=== PATIENT | male | born 1935 | race Caucasian/White ===

== ENCOUNTER 2017-01-29 21:35 | Inpatient (IN) | payer OTHER ==
[~2017-01-29] VITALS: Ht 167.6 cm; Wt 62.0 kg
[2017-01-29 23:44] VITALS: BMI 22.1
[2017-01-30] VITALS (10 sets, daily range): BP systolic 106–176; BP diastolic 56–76; PULSE 63–87; RESP 16–20; Ht 167.6 cm; Wt 62.0 kg
[2017-01-30] MEDS ORDERED: DIAZEPAM 5 MG TAB PO ONE (00:49)
[2017-01-30] MEDS ORDERED: hydrALAzine 20 MG INJ ONE (01:14)
[2017-01-30] MEDS ORDERED: DIAZEPAM 5 MG TAB ONE (01:15)
[2017-01-30] MEDS ORDERED: clonAZEPAM 0.5 MG TAB ONE (05:44)
[2017-01-30 07:23] LABS: ALBUMIN 3.9 g/dl (3.3-4.9); ALBUMIN/GLOBULIN RATIO 1.18; BILIRUBIN,INDIRECT 0.7 mg/dl (0-1.1); BILIRUBIN,TOTAL 0.7 mg/dl (0.2-1.3); CALCIUM 8.6 mg/dl (8.4-10.2); CREATININE 0.72 mg/dl (0.61-1.24); MAGNESIUM 1.7 mg/dl (1.7-2.5); PHOSPHORUS 2.4 mg/dl (2.5-4.9); POTASSIUM 3.4 mmol/L (3.5-5.1); TOTAL PROTEIN 7.2 g/dl (6.1-8.1)
--- NOTE | 2017-01-30 07:30 | HP ---
DATE OF ADMISSION: 01/29/2017 CHIEF COMPLAINT: Tremors and insomnia. HISTORY OF PRESENT ILLNESS: Mr. Carter is an 81-year-old male, who was brought in by his and his daughter because he has been having insomnia for about the last 5 days. The patient has been on clonazepam for 5 years for insomnia but this stopped working for the patient and he was changed to Ambien. However, since roughly since about the time of switch, Marycarmen does not seem to work at all and the patient has had any sleep for the last 3 days. He has developed lethargy and tremor and they called his primary care doctor today to complain of a severe tremor, who recommended go to the ER. In the emergency room, was found to have a sodium of 120, and decision was made to admit the patient. The patient has also been on losartan and hydrochlorothiazide for years. PAST MEDICAL HISTORY: 1. Hypertension. 2. Insomnia. SURGICAL HISTORY: None. ALLERGIES: NO KNOWN DRUG ALLERGIES. SOCIAL HISTORY: Denies tobacco, alcohol, or illicit drug use. FAMILY HISTORY: Noncontributory. MEDICATIONS: Reviewed and reconciled. PHYSICAL EXAMINATION: VITAL SIGNS: Vital signs are reviewed and stable. However, at this time. The computer system is down, so readings are not available. GENERAL: Patient was again, at about 1 a.m. in the morning, alert, not sleeping. Pleasant mood. HEENT: Head normocephalic. Pupils equal and reactive. Mucous membranes moist. Posterior pharynx free of exudate. NECK: Supple. CHEST: Clear. CARDIOVASCULAR: S1, S2. No murmurs. ABDOMEN: Soft, nontender, nondistended. Normoactive bowel sounds. EXTREMITIES: No lower extremity edema. SKIN: No rash or jaundice. LAB VALUES: Periportal lab values that were done at the referring ER were unremarkable except for a sodium of 123. EKG and chest x-ray were also unremarkable. ASSESSMENT: An 81-year-old male brought in for tremors and insomnia, likely secondary to the followin. Benzodiazepine withdrawal. 2. Symptomatic hyponatremia. 3. Tremor secondary to the above. 4. Hypertension with good control. PLAN: 1. Start patient on a longer-acting benzodiazepine and gently wean off Klonopin instead of stopping abruptly. 2. Neurology consult possibly depending on team and see if this might help the patient if tremors do not improve. 3. Gentle IV fluid hydration to help with hyponatremia, also hold diuretics for now. Again, for neurological consultation if no improvement. 4. Provide supportive care and therapy. 5. Prophylaxis. Patient is to be on SCDs and further intervention will depend on his clinical course. Dictated By: Philip Zarate MD /diane/patrick /Document#: [id number]
[2017-01-30 07:56] LABS: ADD UMIC YES; UR ASCORBIC ACID NEGATIVE (NEGATIVE); UR BILIRUBIN (Dip) NEGATIVE (NEGATIVE); UR BLOOD (Dip) 1+ mg/dL (NEGATIVE); UR CLARITY CLEAR (CLEAR); UR COLOR STRAW (YELLOW); UR GLUCOSE (Dip) NEGATIVE (NEGATIVE); UR KETONES (Dip) NEGATIVE (NEGATIVE); UR LEUKOCYTE ESTERASE (Dip) NEGATIVE Leu/ul (NEGATIVE); UR NITRITE (Dip) NEGATIVE (NEGATIVE); UR RBC 7 /HPF (0-5); UR SPECIFIC GRAVITY (Dip) 1.008 (1.003-1.030); UR TOTAL PROTEIN (Dip) NEGATIVE (NEGATIVE); UR UROBILINOGEN (Dip) NEGATIVE (NEGATIVE)
[2017-01-30 08:38] LABS: THYROID STIMULATING HORMONE 0.377 MIU/L (0.465-4.680)
[2017-01-30] MEDS ORDERED: ONDANSETRON 4 MG INJ IV PRN (09:00)
[2017-01-30] MEDS ORDERED: VALSARTAN 160 MG TAB PO SCH (09:00)
[2017-01-30] MEDS ORDERED: hydrALAzine 20 MG INJ IV PRN (09:00)
[2017-01-30] MEDS ORDERED: clonAZEPAM 0.5 MG TAB PO PRN (09:00)
[2017-01-30 09:45] LABS: BASOPHILS % 0.4 % (0.0-2.0); EOSINOPHILS # 0.1 10^3/ul (0.0-0.5); EOSINOPHILS % 0.5 % (0.0-7.0); HEMATOCRIT 40.3 % (42.0-52.0); HEMOGLOBIN 15.1 g/dl (14.0-18.0); LYMPHOCYTES # 1.9 10^3/ul (0.8-2.9); LYMPHOCYTES % 18.8 % (15.0-51.0); MEAN CORPUSCULAR HEMOGLOBIN 34.2 pg (29.0-33.0); MEAN CORPUSCULAR HGB CONC 37.5 g/dl (32.0-37.0); MEAN CORPUSCULAR VOLUME 91.2 fl (82.0-101.0); MEAN PLATELET VOLUME 10.3 fl (7.4-10.4); MONOCYTES % 10.3 % (0.0-11.0); NEUTROPHILS % 69.7 % (39.0-77.0); POSITIVE DIFF @See below; RED BLOOD COUNT 4.42 10^6/ul (4.70-6.10); RED CELL DISTRIBUTION WIDTH 12.1 % (11.5-14.5); WHITE BLOOD COUNT 10.1 10^3/ul (4.8-10.8)
[2017-01-30 09:55] LABS: PLATELET COUNT 152 10^3/UL (140-415)
[2017-01-30] MEDS: ASPIRIN 81 MG TAB PO SCH (10:01)
[2017-01-30] MEDS: DOCUSATE SODIUM 100 MG CAP PO SCH ×2 (10:01→20:40)
[2017-01-30] MEDS: ENOXAPARIN 40 MG/0.4 ML SYG SC SCH (10:08)
[2017-01-30] MEDS ORDERED: POTASSIUM CHLORIDE (SR) 20 MEQ TAB PO STA (10:56)
--- NOTE | 2017-01-30 11:14 | PN ---
Date/Time of Note Date/Time of Note DATE: 01/30/17 TIME: 11:10 Assessment/Plan VTE Prophylaxis VTE Prophylaxis Intervention: LMWH Assessment/Plan Problems: (1) Bipolar affective disorder, current episode hypomanic Status: Chronic Comment: In discussion with the patient's family he has had cyclical events of insomnia at least 4 times in the last few years. He has been on clonazepam at 2 mg a day for at least 5 years. He had seen a psychiatrist in [facility] but was not formally given a diagnosis that they are aware of. They were told to give him sleeping medications when he could not sleep. He does have intermittent episodes of depression after the episodes of not being able to sleep. Is never been treated for this in the [facility]. I suspect this is a late diagnosis of the bipolar affective disorder. Rapidly discontinuing his clonazepam is a recipe for disaster. In addition he had been given a prescription for [place] Prandin which she had not started. I believe this is partially a correct maneuver but he needs to be on low-dose lithium at bedtime to help keep him from cycling up. Start him on the lithium and then tomorrow we can start him on the citalopram with lamotrigine to keep him from cycling down. The clonazepam can be weaned off. 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 Adjust his blood pressure medications (5) Essential hypertension Status: Chronic Comment: Check postvoid residual. If elevated then we can use alpha blockade also can do blood pressure Subjective 24 Hr Interval Summary Free Text/Dictation Patient sitting upright in bed. Pleasant and exuberant. Reports his tremor has stopped Constitutional: no complaints Respiratory: no complaints Exam/Review of Systems Vital Signs Vitals Vital Signs Date Time Temp Pulse Resp B/P Pulse Ox O2 Delivery O2 Flow Rate FiO2 01/30/17 08:02 98.2 71 16 106/56 94 01/30/17 04:00 Room Air Exam Pleasant Salvadoran gentleman in no obvious distress. Results Result Diagram: 01/30/17 0524 01/30/1724 Results 24 hrs Laboratory Tests Test 01/30/17 01:30 01/30/17 05:24 Urine Color STRAW Urine Clarity CLEAR Urine pH 8.0 Urine Specific [place] 1.008 Urine Ketones NEGATIVE Urine Nitrite NEGATIVE Urine Bilirubin NEGATIVE Urine Urobilinogen NEGATIVE Urine Leukocyte Esterase NEGATIVE Urine Microscopic RBC 7 H Urine Microscopic WBC 0 Urine Hemoglobin 1+ H Urine Glucose NEGATIVE Urine Total Protein NEGATIVE White Blood Count 10.1 Red Blood Count 4.42 L Hemoglobin 15.1 Hematocrit 40.3 L Mean Corpuscular Volume 91.2 Mean Corpuscular Hemoglobin 34.2 H Mean Corpuscular Hemoglobin Concent 37.5 H Red Cell Distribution Width 12.1 Platelet Count 152 Mean Platelet Volume 10.3 Neutrophils % 69.7 Lymphocytes % 18.8 Monocytes % 10.3 Eosinophils % 0.5 Basophils % 0.4 Nucleated Red Blood Cells % 0.0 Neutrophils # (Manual) 7.0 Lymphocytes # 1.9 Monocytes # 1.0 H Eosinophils # 0.1 Basophils # 0.0 Nucleated Red Blood Cells # 0.0 Sodium Level 126 L Potassium Level 3.4 L Chloride Level 88 L Carbon Dioxide Level 23 Anion Gap 18 H Blood Urea Nitrogen 9 Creatinine 0.72 Glucose Level 97 Calcium Level 8.6 Phosphorus Level 2.4 L Magnesium Level 1.7 Total Bilirubin 0.7 Direct Bilirubin 0.00 Indirect Bilirubin 0.7 Aspartate Amino Transf (AST/SGOT) 25 Alanine Aminotransferase (ALT/SGPT) 30 Alkaline Phosphatase 50 Total Protein 7.2 Albumin 3.9 Globulin 3.30 H Albumin/Globulin Ratio 1.18 Thyroid Stimulating Hormone (TSH) 0.377 L Medications Medications Current Medications Sodium Chloride (NS) 1,000 ml @ 100 mls/hr Q10H IV ; Start 01/30/17 at 00:30 Aspirin (Aspirin) 81 mg DAILY PO Last administered on 01/30/17 10:01; Admin Dose 81 MG; Start 01/30/17 at 09:00 Valsartan (Diovan) 160 mg DAILY PO Last administered on 01/30/17 10:02; Admin Dose 160 MG; Start 01/30/17 at 09:00 Hydralazine HCl (Apresoline) 10 mg Q6H PRN IV SBP ABOVE 160; Start 01/30/17 at 09:00 Docusate Sodium (Colace) 100 mg BID PO Last administered on 01/30/17 10:01; Admin Dose 100 MG; Start 01/30/17 at 09:00 Enoxaparin Sodium (Lovenox) 40 mg DAILY SC Last administered on 01/30/17 10:08 ; Admin Dose 40 MG; Start 01/30/17 at 09:00 Ondansetron HCl (Zofran Inj) 4 mg Q6H PRN IV NAUSEA AND/OR VOMITING; Start at 09:00 Clonazepam (Klonopin) 0.5 mg QHS PO ; Start 01/30/17 at 21:00; Stop 02/04/17 at 20:59 [place] Carbonate ([place] Carbonate) 300 mg QHS PO ; Start 01/30/17 at 21:00; Status UNV Lamotrigine (Lamictal) 50 mg QHS PO ; Start 01/30/17 at 21:00; Status UNV PADMINI FARIA MD Jan 30, 2017 11:14
[2017-01-30] MEDS: SOD CHLORIDE 0.9% 1,000 ML IV SCH ×3 (11:48→20:53)
[2017-01-30] MEDS ORDERED: POTASSIUM CHLORIDE 20 MEQ POWDER FOR ORAL SOLN PO STA (11:54)
[2017-01-30] MEDS: LAMOTRIGINE 25 MG TAB PO SCH (20:42)
[2017-01-30] MEDS: clonAZEPAM 0.5 MG TAB PO SCH (20:42)
[2017-01-30] MEDS: LITHIUM CARBONATE 300 MG CAP PO SCH (20:47)
[2017-01-31] VITALS (14 sets, daily range): BP systolic 120–164; BP diastolic 56–70; PULSE 53–108; RESP 16–19
[2017-01-31] MEDS: SOD CHLORIDE 0.9% 1,000 ML IV SCH ×2 (06:25→17:56)
[2017-01-31 07:05] LABS: BASOPHILS % 0.5 % (0.0-2.0); EOSINOPHILS # 0.1 10^3/ul (0.0-0.5); EOSINOPHILS % 1.4 % (0.0-7.0); HEMATOCRIT 40.2 % (42.0-52.0); HEMOGLOBIN 14.7 g/dl (14.0-18.0); LYMPHOCYTES # 1.9 10^3/ul (0.8-2.9); LYMPHOCYTES % 29.4 % (15.0-51.0); MEAN CORPUSCULAR HEMOGLOBIN 33.9 pg (29.0-33.0); MEAN CORPUSCULAR HGB CONC 36.6 g/dl (32.0-37.0); MEAN CORPUSCULAR VOLUME 92.6 fl (82.0-101.0); MEAN PLATELET VOLUME 10.4 fl (7.4-10.4); MONOCYTE # 0.9 10^3/ul (0.3-0.9); NEUTROPHILS % 54.5 % (39.0-77.0); PLATELET COUNT 200 10^3/UL (140-415); RED BLOOD COUNT 4.34 10^6/ul (4.70-6.10); RED CELL DISTRIBUTION WIDTH 12.3 % (11.5-14.5); WHITE BLOOD COUNT 6.4 10^3/ul (4.8-10.8)
[2017-01-31 08:05] LABS: ALBUMIN 3.8 g/dl (3.3-4.9); ALBUMIN/GLOBULIN RATIO 1.31; BILIRUBIN,INDIRECT 0.6 mg/dl (0-1.1); BILIRUBIN,TOTAL 0.6 mg/dl (0.2-1.3); CALCIUM 8.8 mg/dl (8.4-10.2); CREATININE 0.8 mg/dl (0.61-1.24); POTASSIUM 4.3 mmol/L (3.5-5.1); TOTAL PROTEIN 6.7 g/dl (6.1-8.1)
--- NOTE | 2017-01-31 09:46 | PN ---
Date/Time of Note Date/Time of Note DATE: 01/31/17 TIME: 09:43 Assessment/Plan VTE Prophylaxis VTE Prophylaxis Intervention: heparin Lines/Catheters IV C[facility]ter Type [facility] Peripheral IV Assessment/Plan Problems: (1) Bipolar affective disorder, current episode hypomanic Status: Chronic Comment: While I have not formally establish this diagnosis I am treating him as such because this is what fits. He is actually having a decent response to therapeutics. He will need outpatient formalized evaluation. (2) Insomnia Status: Chronic Comment: Resolved and managed. Please note there was sudden withdrawal of the clonazepam the patient been on for 5 years at 2 mg a day would be a maneuver I would avoid. Will use a much lower dose of clonazepam 0.5 mg a day and he can be titrated off over the next 2 months. This is as his psychiatric issues are brought under control Qualifiers: Insomnia type: psychophysiologic Qualified Code: F51.04 - Psychophysiological insomnia (3) Hyponatremia Status: Resolved Comment: Resolved (4) Essential hypertension Status: Chronic Comment: Upward adjust on the valsartan for control (5) Hypokalemia Status: Resolved Comment: Resolved. Assessment/Plan Anticipate morning discharge Subjective 24 Hr Interval Summary Free Text/Dictation Patient reports he is feeling better markedly less tremor. Reports he was able to sleep. Main complaint excessive nocturnal urination. Constitutional: no complaints Respiratory: no complaints Cardiovascular: no complaints Gastrointestinal: no complaints Genitourinary: other (Polyuria) Exam/Review of Systems Vital Signs Vitals Vital Signs Date Time Temp Pulse Resp B/P Pulse Ox O2 Delivery O2 Flow Rate FiO2 01/31/17 08:04 53 01/31/17 07:39 98.3 16 164/70 94 01/30/17 04:00 Room Air Intake and Output 01/30/17 01/30/17 01/31/17 15:00 23:00 07:00 Intake Total 1400 ml Output Total 400 ml 1400 ml Balance -400 ml 0 ml Exam Constitutional: alert, oriented Neck: non-tender, supple Respiratory: clear to auscultation, normal air movement Cardiovascular: nl pulses, regular rate and rhythm Gastrointestinal: nl liver, spleen, non-tender, soft Results Result Diagram: 01/31/17 0603 01/31/17 0603 Results 24 hrs Laboratory Tests Test 01/31/17 06:03 White Blood Count 6.4 # Red Blood Count 4.34 L Hemoglobin 14.7 Hematocrit 40.2 L Mean Corpuscular Volume 92.6 Mean Corpuscular Hemoglobin 33.9 H Mean Corpuscular Hemoglobin Concent 36.6 Red Cell Distribution Width 12.3 Platelet Count 200 # Mean Platelet Volume 10.4 Neutrophils % 54.5 Lymphocytes % 29.4 Monocytes % 14.0 H Eosinophils % 1.4 Basophils % 0.5 Nucleated Red Blood Cells % 0.0 Neutrophils # (Manual) 3.5 Lymphocytes # 1.9 Monocytes # 0.9 Eosinophils # 0.1 Basophils # 0.0 Nucleated Red Blood Cells # 0.0 Sodium Level 138 Potassium Level 4.3 Chloride Level 102 # Carbon Dioxide Level 22 Anion Gap 18 H Blood Urea Nitrogen 10 Creatinine 0.80 Glucose Level 83 Calcium Level 8.8 Total Bilirubin 0.6 Direct Bilirubin 0.00 Indirect Bilirubin 0.6 Aspartate Amino Transf (AST/SGOT) 20 Alanine Aminotransferase (ALT/SGPT) 26 Alkaline Phosphatase 44 Total Protein 6.7 Albumin 3.8 Globulin 2.90 Albumin/Globulin Ratio 1.31 Medications Medications Current Medications Sodium Chloride (NS) 1,000 ml @ 100 mls/hr Q10H IV Last administered on 06:25; Admin Dose 100 MLS/HR; Start 01/30/17 at 00:30 Aspirin (Aspirin) 81 mg DAILY PO Last administered on 01/30/17 10:01; Admin Dose 81 MG; Start 01/30/17 at 09:00 Valsartan (Diovan) 160 mg DAILY PO Last administered on 01/30/17 10:02; Admin Dose 160 MG; Start 01/30/17 at 09:00 Hydralazine HCl (Apresoline) 10 mg Q6H PRN IV SBP ABOVE 160; Start 01/30/17 at 09:00 Docusate Sodium (Colace) 100 mg BID PO Last administered on 01/30/17 20:40; Admin Dose 100 MG; Start 01/30/17 at 09:00 Enoxaparin Sodium (Lovenox) 40 mg DAILY SC Last administered on 01/30/17 10:08 ; Admin Dose 40 MG; Start 01/30/17 at 09:00 Ondansetron HCl (Zofran Inj) 4 mg Q6H PRN IV NAUSEA AND/OR VOMITING; Start at 09:00 Clonazepam (Klonopin) 0.5 mg QHS PO Last administered on 01/30/17 20:42; Admin Dose 0.5 MG; Start 01/30/17 at 21:00; Stop 02/04/17 at 20:59 [place] Carbonate ([place] Carbonate) 300 mg QHS PO Last administered on 20:47; Admin Dose 300 MG; Start 01/30/17 at 21:00 Lamotrigine (Lamictal) 50 mg QHS PO Last administered on 01/30/17 20:42; Admin Dose 50 MG; Start 01/30/17 at 21:00 PADMINI FARIA MD Jan 31, 2017 09:46
[2017-01-31] MEDS ORDERED: VALSARTAN 160 MG TAB PO ONE (10:00)
[2017-01-31] MEDS: CITALOPRAM 20 MG TAB PO SCH (10:39)
[2017-01-31] MEDS: ASPIRIN 81 MG TAB PO SCH (10:49)
[2017-01-31] MEDS: DOCUSATE SODIUM 100 MG CAP PO SCH ×2 (10:49→20:44)
[2017-01-31] MEDS: ENOXAPARIN 40 MG/0.4 ML SYG SC SCH (10:51)
[2017-01-31] MEDS: clonAZEPAM 0.5 MG TAB PO SCH (20:44)
[2017-01-31] MEDS: LAMOTRIGINE 25 MG TAB PO SCH (20:44)
[2017-01-31] MEDS: LITHIUM CARBONATE 300 MG CAP PO SCH (20:44)
[2017-02-01] VITALS (7 sets, daily range): BP systolic 131–171; BP diastolic 61–81; PULSE 52–82; RESP 18
[2017-02-01] MEDS: SOD CHLORIDE 0.9% 1,000 ML IV SCH ×3 (02:30→12:30)
[2017-02-01 07:30] LABS: CALCIUM 8.4 mg/dl (8.4-10.2); CREATININE 0.8 mg/dl (0.61-1.24); POTASSIUM 3.7 mmol/L (3.5-5.1)
[2017-02-01] MEDS: ASPIRIN 81 MG TAB PO SCH (08:37)
[2017-02-01] MEDS: CITALOPRAM 20 MG TAB PO SCH (08:37)
[2017-02-01] MEDS: DOCUSATE SODIUM 100 MG CAP PO SCH (08:37)
[2017-02-01] MEDS: ENOXAPARIN 40 MG/0.4 ML SYG SC SCH (08:52)
[2017-02-01] MEDS ORDERED: VALSARTAN 160 MG TAB PO SCH (09:00)
--- NOTE | 2017-02-01 12:14 | PDOCDIS ---
Discharge Instructions CONDITION Patient Condition: Stable HOME CARE INSTRUCTIONS: Diet Instructions: Regular FOLLOW UP/APPOINTMENTS Follow-up Plan 1.Follow up with outpatient psychiatrist in 1 month-Needs titration of Clonazepam. 2.Follow up with primary care physician in 1 week If you don't have one please let someone know, we can give you resources that may help you pick one. You may also call your insurance company to assign one to you. Review your medication list with your nurse before leaving and if you need new prescriptions please let your nurse know. I may have made changes to your home medications or given you new prescriptions, please let your primary doctor know as well. Stay compliant with your medications and report any side effects to your PCP or pharmacist. Return to the ER if you have any concerns and cannot reach your doctors or call your insurance company, they usually have a nurse that can help you. 3. Call 911 or go to the nearest emergency room if experiencing loss of consciousness, dizziness, chest pain, shortness of breath, vomiting/abdominal pain, speech difficulties, motor weakness or any unusual symptoms. GRACE WAKEFIELD NP Feb 01, 2017 12:14
[2017-02-01] MEDS ORDERED: LAMO25TA PO (12:16)
[2017-02-01] MEDS ORDERED: ASPI81TA3 PO (12:16)
[2017-02-01] MEDS ORDERED: LIT300 PO (12:16)
[2017-02-01] MEDS ORDERED: VALS160T20 PO (12:16)
[2017-02-01] MEDS ORDERED: CLON0.5T4 PO (12:16)
[2017-02-01] MEDS ORDERED: CITA20TA11 PO (12:16)
--- NOTE | 2017-02-01 16:11 | DS ---
Date/Time of Note Date/Time of Note DATE: 02/01/17 TIME: 16:05 Discharge Summary Admission/Discharge Info Admit Date/Time Jan 29, 2017 at 23:00 Discharge Date/Time Feb 01, 2017 at 14:45 Discharge Diagnosis 1. Bipolar affective disorder 2. Insomnia,resolved. 3. Hyponatremia,likely 2/2 thiazide effect along with [place]. Resolved 4. Essential hypertension 5. Hypokalemia. Resolved Patient Condition: Stable Hospital Course This is a 81-year-old elderly male, with a past medical history of bipolar affective disorders-on lithium, insomnia, hypertension, who was brought to the emergency room by family because patient was having insomnia for about 5 days. Apparently, patient stopped taking his clonazepam which he was taking for 5 years. Patient was continued on Ambien and did not work and he could not sleep for the past few days. Patient also developed lethargy and tremors and his primary care doctor with lack of sleep and decided to come to the emergency room as advised by his PCP. Patient also noted to have a low sodium 120 upon presentation and was admitted.He was also taking lithium and thiazide diuretics. Patient was continued on low-dose Klonopin with the recommendation of titrating it down slowly. Thiazide diuretics were withheld as patient is also on lithium therapy and presented with hyponatremia. Sodium was monitored closely and remained stable thereafter. Patient did not have any further tremors or any neuro symptoms. His insomnia was resolved. He was continued on other antipsychotic medications which he takes at home. Blood pressure remained stable. Patient was able to tolerate diet and activities well. At this time there is no further inpatient workup indicated. Recommendation was to discharge patient home with outpatient psychiatric follow-up and titrate off Klonopin over the next 2 months. Patient and family verbalized discharge instructions. Disposition: Patient will be discharged home with outpatient psychiatric follow- up. Patient family was educated on his current medication list and they verbalized discharge instructions. Approximately 60 minutes was spent in coordinating the discharge on this patient. Case discussed with [facility] Active Scripts [place] Carbonate* ([place]*) 300 Mg Cap, 300 MG PO QHS, #30 CAP Prov:WAKEFIELD,GRACE V. TOBACCO SIEVE OPERATOR 02/01/17 Lamotrigine* (Lamotrigine*) 25 Mg Tablet, 50 MG PO QHS, #30 TAB Prov:WAKEFIELD,GRACE V. TOBACCO SIEVE OPERATOR 02/01/17 Clonazepam* (Clonazepam*) 0.5 Mg Tablet, 0.5 MG PO QHS, #30 TAB Prov:GRACE WAKEFIELD V. TOBACCO SIEVE OPERATOR 02/01/17 Citalopram Hydrobromide* (Celexa*) 20 Mg Tablet, 20 MG PO DAILY, #30 TAB Prov:WAKEFIELDWOODYGRACE V. TOBACCO SIEVE OPERATOR 02/01/17 Aspirin (Aspirin) 81 Mg Chew, 81 MG PO DAILY, #30 TAB Prov:GRACE WAKEFIELD V. TOBACCO SIEVE OPERATOR 02/01/17 Valsartan* (Diovan*) 160 Mg Tablet, 320 MG PO DAILY, #30 TAB Prov:ENID WAKEFIELDA V. TOBACCO SIEVE OPERATOR 02/01/17 Follow-up Plan HOME CARE INSTRUCTIONS: Diet Instructions: Regular FOLLOW UP/APPOINTMENTS Follow-up Plan 1.Follow up with outpatient psychiatrist in 1 month-Needs titration of Clonazepam. 2.Follow up with primary care physician in 1 week If you don't have one please let someone know, we can give you resources that may help you pick one. You may also call your insurance company to assign one to you. Review your medication list with your nurse before leaving and if you need new prescriptions please let your nurse know. I may have made changes to your home medications or given you new prescriptions, please let your primary doctor know as well. Stay compliant with your medications and report any side effects to your PCP or pharmacist. Return to the ER if you have any concerns and cannot reach your doctors or call your insurance company, they usually have a nurse that can help you. 3. Call 911 or go to the nearest emergency room if experiencing loss of consciousness, dizziness, chest pain, shortness of breath, vomiting/abdominal pain, speech difficulties, motor weakness or any unusual symptoms. Primary Care Provider Bret Varghese Pending Labs Laboratory Tests Test 02/01/17 06:20 Sodium Level 138mmol/L (135-144) Potassium Level 3.7mmol/L (3.5-5.1) Chloride Level 102mmol/L (97-110) Carbon Dioxide Level 23mmol/L (21-31) Anion Gap 17 (8-16) Blood Urea Nitrogen 9mg/dl (7-20) Creatinine 0.80mg/dl (0.61-1.24) Glucose Level 91mg/dl (70-220) Calcium Level 8.4mg/dl (8.4-10.2) GRACE WAKEFIELD NP Feb 01, 2017 16:11
== END 2017-02-01 14:45 | disposition home or self-care (01) | DRG 885 ==
LOC: TEL 23:00
PROVIDERS: ADMIT Family Medicine; ATTEND Family Medicine
DX: F31.0 Bipolar disorder, current episode hypomanic (principal); E87.1 Hypo-osmolality and hyponatremia; I10 Essential (primary) hypertension; E87.6 Hypokalemia; F51.04 Psychophysiologic insomnia
CPT/HCPCS: 80048; 80053; 81001; 83735; 84100; 84443; 85025; J0360; J1650; J7030

== ENCOUNTER 2017-02-09 20:48 | Inpatient (IN) | payer OTHER ==
[~2017-02-09] VITALS: Ht 165.1 cm; Wt 61.4 kg
[~2017-02-09 20:48] MED LIST: ASPI81TA3 PO; CITA20TA11 PO; CLON0.5T4 PO; LAMO25TA PO; LIT300 PO; VALS160T20 PO
[2017-02-09] MEDS ORDERED: ASPIRIN 325 MG TAB PO STA (21:12)
[2017-02-09] MEDS ORDERED: NITROGLYCERIN 2% 1 GM OINT PKT TD STA (21:12)
[2017-02-09 22:25] LABS: INR 0.99; PROTIME 13.1 Sec (12.2-14.2)
[2017-02-09 22:26] LABS: PARTIAL THROMBOPLASTIN TIME 24.7 Sec (25.0-35.0)
[2017-02-09 22:28] LABS: ALANINE AMINOTRANSFERASE 26 IU/L (13-69); ALBUMIN 4.4 g/dl (3.3-4.9); ALBUMIN/GLOBULIN RATIO 1.37; ALKALINE PHOSPHATASE 47 IU/L (42-121); ANION GAP 16 (8-16); ASPARTATE AMINO TRANSFERASE 21 IU/L (15-46); BILIRUBIN,INDIRECT 0.5 mg/dl (0-1.1); BILIRUBIN,TOTAL 0.5 mg/dl (0.2-1.3); BLOOD UREA NITROGEN 18 mg/dl (7-20); CALCIUM 9.4 mg/dl (8.4-10.2); CARBON DIOXIDE 26 mmol/L (21-31); CHLORIDE 80 mmol/L (97-110); CREATININE 1.11 mg/dl (0.61-1.24); GLUCOSE 151 mg/dl (70-220); POTASSIUM 3.9 mmol/L (3.5-5.1); TOTAL PROTEIN 7.6 g/dl (6.1-8.1)
[2017-02-09 22:40] LABS: B-TYPE NATRIURETIC PEPTIDE 141 PG/ML (0-450)
--- NOTE | 2017-02-09 22:42 | RADRPT ---
PROCEDURE: XR Chest. CLINICAL INDICATION: Chest pain. TECHNIQUE: AP Portable chest. COMPARISON: No pertinent prior examinations were submitted for comparison. FINDINGS: The cardiomediastinal silhouette is normal. There is some minimal linear opacity at the right lung base peripherally. The osseous structures are unremarkable. IMPRESSION: Minimal right base opacity likely due to atelectasis. RPTAT: HIKT .Segundo Benitez MD, MD Date Time Electronically viewed and signed by .Segundo Benitez MD, on 02/09/2017 22:42 .T/
[2017-02-09 22:48] LABS: SODIUM 118 mmol/L (135-144); TROPONIN-I < 0.012 ng/ml (0.00-0.12)
--- NOTE | 2017-02-09 23:27 | ERA ---
ER Documentation Chief Complaint Date/Time DATE: 02/09/17 TIME: 23:19 Chief Complaint Turned blue, chest pain HPI Patient's daughter is here with the patient and she states that he has not been eating or drinking well today. He said he did not feel good today and he told his daughter that he was going to today. She says tonight that he suddenly grabbed his chest and turned blue and stopped breathing. She said that she put him on the floor and then she gave him [id number] with bystander CPR. She says she did this for approximately a minute and then he woke up. Patient says he does not remember any of these incidences and has no complaints at this time. He is extremely poor historian. ROS All systems reviewed and are negative except as per history of present illness. Medications Home Meds Active Scripts [place] Carbonate* ([place]*) 300 Mg Cap, 300 MG PO QHS, #30 CAP Prov:WAKEFIELD,GRACE V. FIELD EVIDENCE TECHNICIAN 02/01/17 Lamotrigine* (Lamotrigine*) 25 Mg Tablet, 50 MG PO QHS, #30 TAB Prov:WAKEFIELD,GRACE V. FIELD EVIDENCE TECHNICIAN 02/01/17 Clonazepam* (Clonazepam*) 0.5 Mg Tablet, 0.5 MG PO QHS, #30 TAB Prov:WAKEFIELD,GRACE V. FIELD EVIDENCE TECHNICIAN 02/01/17 Citalopram Hydrobromide* (Celexa*) 20 Mg Tablet, 20 MG PO DAILY, #30 TAB Prov:WAKEFIELD,GRACE V. FIELD EVIDENCE TECHNICIAN 02/01/17 Aspirin (Aspirin) 81 Mg Chew, 81 MG PO DAILY, #30 TAB Prov:WAKEFIELD,GRACE V. FIELD EVIDENCE TECHNICIAN 02/01/17 Valsartan* (Diovan*) 160 Mg Tablet, 320 MG PO DAILY, #30 TAB Prov:WAKEFIELD,GRACE V. FIELD EVIDENCE TECHNICIAN 02/01/17 Allergies Allergies: Coded Allergies: No Known Allergy (Unverified , 01/30/17) PMhx/Soc History of Surgery: Yes (eye surgery) Anesthesia Reaction: No Hx Respiratory Disorders: No Hx Cardiac Disorders: No Hx Psychiatric Problems: No Hx Miscellaneous Medical Probl: No Hx Alcohol Use: No Hx Substance Use: No Hx Tobacco Use: No Smoking Status: Never smoker FmHx Family History: No coronary disease Physical Exam Vitals Vital Signs Date Time Temp Pulse Resp B/P Pulse Ox O2 Delivery O2 Flow Rate FiO2 02/09/17 20:56 98.6 107 18 159/77 92 Physical Exam Const: Well-developed, well-nourished Head: Atraumatic, normocephalic Eyes: Normal Conjunctiva, PERRLA, EOMI, normal sclera, no nystagmus ENT: Normal External Ears, Nose and Mouth, moist mucus membranes. Neck: Full range of motion. No meningismus, no lymphadenopathy. Resp: Clear to auscultation bilaterally, no wheezing, rhonchi, rales Cardio: Regular rate and rhythm, no murmurs, S1 S2 present Abd: Soft, non tender x 4, non distended. Normal bowel sounds, no guarding or rebound, no pulsitile abdominal masses or bruits Skin: No petechiae or rashes, no ecchymosis , no maculopapular rash Back: No midline or flank tenderness Ext: No cyanosis, or edema, FROM x 4, normal inspection, neurovascularly intact x 4 Neur: Awake and alert, STR 5/5 x 4, sensation intact x 4, no focal findings, cerebellum intact Psych: Normal Mood and Affect Result Diagram: 02/09/172139 Results 24 hrs Laboratory Tests Test 02/09/17 21:40 02/09/17 23:00 Prothrombin Time 13.1Sec Prothrombin Time Ratio 1.0 INR International Normalized Ratio 0.99 Activated Partial Thromboplast Time 24.7Sec Sodium Level 118mmol/L Potassium Level 3.9mmol/L Chloride Level 80mmol/L Carbon Dioxide Level 26mmol/L Anion Gap 16 Blood Urea Nitrogen 18mg/dl Creatinine 1.11mg/dl Glucose Level 151mg/dl Calcium Level 9.4mg/dl Total Bilirubin 0.5mg/dl Direct Bilirubin 0.00mg/dl Indirect Bilirubin 0.5mg/dl Aspartate Amino Transf (AST/SGOT) 21IU/L Alanine Aminotransferase (ALT/SGPT) 26IU/L Alkaline Phosphatase 47IU/L Troponin I < 0.012ng/ml B-Type Natriuretic Peptide 141PG/ML Total Protein 7.6g/dl Albumin 4.4g/dl Globulin 3.20g/dl Albumin/Globulin Ratio 1.37 White Blood Count Pending Red Blood Count Pending Hemoglobin Pending Hematocrit Pending Mean Corpuscular Volume Pending Mean Corpuscular Hemoglobin Pending Mean Corpuscular Hemoglobin Concent Pending Red Cell Distribution Width Pending Platelet Count Pending Mean Platelet Volume Pending Current Medications Medications (Trade) Dose Ordered Sig/Michelle Route PRN Reason Start Time Stop Time Status Last Admin Dose Admin Aspirin (Aspirin) 325 mg ONCE STAT PO 02/09/17 21:12 02/09/17 21:13 DC 02/09/17 22:40 Nitroglycerin (Nitroglycerin 2% Oint) 1 inch ONCE STAT TD 02/09/17 21:12 02/09/17 21:13 DC 02/09/17 22:11 Procedures/MDM PROCEDURE: XR Chest. CLINICAL INDICATION: Chest pain. TECHNIQUE: AP Portable chest. COMPARISON: No pertinent prior examinations were submitted for comparison. FINDINGS: The cardiomediastinal silhouette is normal. There is some minimal linear opacity at the right lung base peripherally. The osseous structures are unremarkable. IMPRESSION: Minimal right base opacity likely due to atelectasis. RPTAT: HIKT .Segundo Benitez MD, MD Date Time Electronically viewed and signed by .Segundo Benitez MD, MD on 02/09/2017 22:42 .T/ CC: MALINDA TOTH DO EKG: Rate/Rhythm: Normal Sinus Rhythm,NL intervals QRS, ST, QT: NORMAL [place], QRS, QT] Impression: NORMAL EKG Patient has a sodium of 118. Patient appeared to have some type of cardiac arrest however troponin is negative thus far. We will admit for hyponatremia as well as chest pain workup/cardiac arrest workup. Patient's thoracic symptoms have stabilized while in the department and are stable for outpatient follow up. Exam and work up not consistent w/ ischemia, arrhythmia, PE or dissection. Departure Diagnosis: Primary Impression: Chest pain Qualified Code: R07.9 - Chest pain, unspecified type Additional Impressions: Hyponatremia Collapse Condition: Stable MALINDA TOTH DO Feb 09, 2017 23:27
[2017-02-09] MEDS ORDERED: ONDANSETRON 4 MG INJ IV PRN (23:30)
[2017-02-09] MEDS ORDERED: SOD CHLORIDE 0.9% 1,000 ML IV SCH (23:30)
[2017-02-09] MEDS ORDERED: ACETAMINOPHEN 325 MG TAB PO PRN (23:30)
[2017-02-09] MEDS ORDERED: CITA10TA84 PO (23:49)
[2017-02-09 23:50] LABS: BASOPHILS % 0.2 % (0.0-2.0); HEMATOCRIT 36.7 % (42.0-52.0); HEMOGLOBIN 14.2 g/dl (14.0-18.0); LYMPHOCYTES # 0.7 10^3/ul (0.8-2.9); LYMPHOCYTES % 5.5 % (15.0-51.0); MEAN CORPUSCULAR HEMOGLOBIN 34.5 pg (29.0-33.0); MEAN CORPUSCULAR VOLUME 89.1 fl (82.0-101.0); MEAN PLATELET VOLUME 10.6 fl (7.4-10.4); MONOCYTE # 0.7 10^3/ul (0.3-0.9); MONOCYTES % 5.6 % (0.0-11.0); NEUTROPHILS % 88.3 % (39.0-77.0); PLATELET COUNT 194 10^3/UL (140-415); POSITIVE DIFF @See below; RED BLOOD COUNT 4.12 10^6/ul (4.70-6.10); WHITE BLOOD COUNT 12.6 10^3/ul (4.8-10.8)
[2017-02-09 23:52] LABS: MEAN CORPUSCULAR HGB CONC 38.7 g/dl (32.0-37.0)
[2017-02-10] VITALS (11 sets, daily range): BP systolic 136–196; BP diastolic 67–86; PULSE 56–83; RESP 18; TEMP 98.6; Ht 165.1 cm; Wt 61.4 kg
[2017-02-10] MEDS ORDERED: NACL 0.9% 3 ML SYG IV SCH (01:30)
[2017-02-10] MEDS ORDERED: ACETAMINOPHEN 325 MG TAB PO PRN (01:30)
[2017-02-10] MEDS ORDERED: DOCUSATE SODIUM 100 MG CAP PO PRN (01:30)
[2017-02-10] MEDS ORDERED: BISACODYL (EC) 5 MG TAB PO PRN (01:30)
[2017-02-10 04:00] LABS: ADD UMIC NO; UR ASCORBIC ACID 20 mg/dL (NEGATIVE); UR BACTERIA FEW /HPF (NONE SEEN); UR BILIRUBIN (Dip) NEGATIVE (NEGATIVE); UR BLOOD (Dip) NEGATIVE (NEGATIVE); UR CLARITY SLIGHTLY CLOUDY (CLEAR); UR COLOR YELLOW (YELLOW); UR GLUCOSE (Dip) NEGATIVE (NEGATIVE); UR KETONES (Dip) NEGATIVE (NEGATIVE); UR LEUKOCYTE ESTERASE (Dip) NEGATIVE Leu/ul (NEGATIVE); UR NITRITE (Dip) NEGATIVE (NEGATIVE); UR RBC 2 /HPF (0-5); UR SPECIFIC GRAVITY (Dip) 1.009 (1.003-1.030); UR TOTAL PROTEIN (Dip) NEGATIVE (NEGATIVE); UR UROBILINOGEN (Dip) NEGATIVE (NEGATIVE)
--- NOTE | 2017-02-10 04:22 | RADRPT ---
PROCEDURE: Noncontrast CT Head. CLINICAL INDICATION: Pain. TECHNIQUE: Noncontrast CT of the head was obtained. The administered radiation dose was CTDI vol = 45 mGy, DLP = 720 mGy-cm. One or more of the following dose reduction techniques were used: automate d exposure control, adjustment of the mA and/or kV according to patient size and/or use of iterative reconstruction technique. COMPARISON: No pertinent prior examinations were submitted for comparison. FINDINGS: The ventricles and cortical sulci are mild to moderately enlarged. There is mild to moderate decrea sed attenuation within the periventricular and subcortical white matter compatible with chronic micr ovascular changes. There is no acute intracranial hemorrhage or extra-axial fluid collection. There is no mass effect . No midline shift is identified. There is no loss of infante-white differentiation to suggest acute in farction. The orbits are within normal limits. The paranasal sinuses are well aerated. No destructive osseous lesion is identified. IMPRESSION: No acute findings. Mild to moderate diffuse parenchymal volume loss and chronic microvascular medina es. RPTAT: HIKT .Segundo Benitez MD, MD Date Time Electronically viewed and signed by .Segundo Benitez MD, MD on 02/10/2017 04:22 .T/
[2017-02-10 06:09] LABS: BASOPHILS % 0.2 % (0.0-2.0); EOSINOPHILS % 0.2 % (0.0-7.0); HEMATOCRIT 35.1 % (42.0-52.0); HEMOGLOBIN 13.1 g/dl (14.0-18.0); LYMPHOCYTES # 1.2 10^3/ul (0.8-2.9); LYMPHOCYTES % 11.5 % (15.0-51.0); MEAN CORPUSCULAR HEMOGLOBIN 33.4 pg (29.0-33.0); MEAN CORPUSCULAR HGB CONC 37.3 g/dl (32.0-37.0); MEAN CORPUSCULAR VOLUME 89.5 fl (82.0-101.0); MONOCYTE # 1.1 10^3/ul (0.3-0.9); MONOCYTES % 10.1 % (0.0-11.0); NEUTROPHILS % 77.5 % (39.0-77.0); PLATELET COUNT 249 10^3/UL (140-415); RED BLOOD COUNT 3.92 10^6/ul (4.70-6.10); RED CELL DISTRIBUTION WIDTH 12.2 % (11.5-14.5); WHITE BLOOD COUNT 10.4 10^3/ul (4.8-10.8)
[2017-02-10 06:39] LABS: ALBUMIN 3.9 g/dl (3.3-4.9); ALBUMIN/GLOBULIN RATIO 1.34; BILIRUBIN,INDIRECT 0.8 mg/dl (0-1.1); BILIRUBIN,TOTAL 0.8 mg/dl (0.2-1.3); CALCIUM 8.8 mg/dl (8.4-10.2); CREATININE 1.03 mg/dl (0.61-1.24); POTASSIUM 3.3 mmol/L (3.5-5.1); TOTAL PROTEIN 6.8 g/dl (6.1-8.1)
[2017-02-10 06:42] LABS: TROPONIN-I 0.02 ng/ml (0.00-0.12)
[2017-02-10 06:44] LABS: CK-MB 2.78 ng/ml (0.0-2.4)
--- NOTE | 2017-02-10 09:33 | HP ---
Date/Time of Note Date/Time of Note DATE: 02/10/17 TIME: 09:21 Assessment/Plan VTE Prophylaxis VTE Prophylaxis Intervention: SCD's Lines/Catheters IV [facility]ter [facility] (from [facility] Peripheral IV Urinary Cath still in place: No Assessment/Plan Chief Complaint/Hosp Course This is a 81-year-old male being admitted to the telemetry floor for: #1 hyponatremia I am hesitant at this time to start him on hypertonic saline: Metabolic versus infectious versus other etiology. Patient's symptoms over the past week appear to possibly be secondary to his hyponatremia. This likely is secondary to patient's blood pressure medication. Will discontinue patient's combination medication of valsartan/hydrochlorothiazide. Will need to restart a different medication upon discharge. Will provide fluid restriction at this time. And monitor sodium levels closely with BMPs q. 3 hours. Will consult nephrology. As I am not sure how fast his sodium level has dropped as he has been feeling on for a week, I will defer further fluid management to nephrology. #2 respiratory arrest: Patient apparently was cyanotic at home and patient had CPR performed by his daughter. Will trend troponins. Will check echocardiogram. Will consult cardiology. #3 hypertension: We will discontinue valsartan/hydrochlorthiazide. Will need to start new medication upon discharge that does not affect sodium levels. #4 anxiety: Patient was taking citalopram as an outpatient however he did not like the medication as per his daughter. The current time will the medication. #5 DVT and GI prophylaxis: SCDs, acid [place] Further treatment strategy will be implemented for clinical course Problems: HPI/ROS Admit Date/Time Admit Date/Time Feb 09, 2017 at 23:31 Hx of Present Illness Chief complaint: Respiratory arrest at home Patient's daughter is here with the patient and she states that he has not been eating or drinking well today. He said he did not feel good today and he told his daughter that he was going to today. She says tonight that he suddenly grabbed his chest and turned blue and stopped breathing. She said that she put him on the floor and then she gave him [id number] with bystander CPR. She says she did this for approximately a minute and then he woke up. Patient says he does not remember any of these incidences and has no complaints at this time. Patient is a poor historian however he is verbal and alert. Daughter does state that patient previously had an issue with hyponatremia and he was supposed to be stopped on his combination medication of valsartan/ hydrochlorothiazide however he has been continuing to take it as there was some medication error. Allergies: NKDA Medications: See NHUNG HAN Const: As per HPI Eyes : No pain discharge or redness or change in visual acuity ENT: No pain, sore throat, congestion, congestion, dysphagia or discharge Respiratory: As per HPI Cardiovascular: As per HPI GI : no change in appetite, abdominal pain, nausea, vomiting, diarrhea, constipation, or change in the color his stool Genitourinary: No dysuria, hematuria, flank pain , discharge or CVA tenderness Musculoskeletal: No joint pain, back pain, neck pain, restricted range of motion in neck or joints Skin: No rash, bruising or hives Neuro: As per HPI Endocrine: No polyuria, polydipsia, temperature intolerance Psych: No hallucination, depression, anxiety or suicidal ideation PMH/Family/Social Past Medical History Hypertension, anxiety Past Surgical History Past Surgical Hx: no surgical history Family History Significant Family History: no pertinent family hx Social History Alcohol Use: none Smoking Status: Former smoker Drug Use: none Exam/Review of Systems Vital Signs Vitals Vital Signs Date Time Temp Pulse Resp B/P Pulse Ox O2 Delivery O2 Flow Rate FiO2 02/10/17 08:27 67 02/10/17 07:53 98.7 18 136/67 96 02/10/17 02:04 Room Air Intake and Output 02/09/17 02/09/17 02/10/17 15:00 23:00 07:00 Intake Total 100 ml Output Total 700 ml Balance -600 ml Exam Exam General: Patient is awake however he does appear confused and he is verbal but providing poor history HEENT: Atraumatic, normocephalic. The pupils are equal, round and reactive. Extraocular motor are intact Neck: Supple with full range of motion. No rigidity or meningismus Chest: Nontender Lungs: Clear to auscultation bilaterally no crackles rales or wheezing Heart: Normal S1-S2, Regular rhythm and rate. No overt murmurs appreciated Abdomen: Soft , nontender, nondistended , bowel sounds are present. No guarding no rebound tenderness , No masses or organomegaly. No costovertebral temporal angle mass Extremities: Normal to inspection, no edema no cyanosis, free range of motion 4 Neurologic: Patient is alert, he is able to move all 4 extremities, cranial nerves II through XII intact, no focal neurological deficits Additional Comments PROCEDURE: Noncontrast CT Head. CLINICAL INDICATION: Pain. TECHNIQUE: Noncontrast CT of the head was obtained. The administered radiation dose was CTDI vol = 45 mGy, DLP = 720 mGy-cm. One or more of the following dose reduction techniques were used: automated exposure control, adjustment of the mA and/or kV according to patient size and/or use of iterative reconstruction technique. COMPARISON: No pertinent prior examinations were submitted for comparison. FINDINGS: The ventricles and cortical sulci are mild to moderately enlarged. There is mild to moderate decreased attenuation within the periventricular and subcortical white matter compatible with chronic microvascular changes. There is no acute intracranial hemorrhage or extra-axial fluid collection. There is no mass effect. No midline shift is identified. There is no loss of infante-white differentiation to suggest acute infarction. The orbits are within normal limits. The paranasal sinuses are well aerated. No destructive osseous lesion is identified. IMPRESSION: No acute findings. Mild to moderate diffuse parenchymal volume loss and chronic microvascular changes. RPTAT: HIKT .Segundo Benitez MD, MD Date Time Electronically viewed and signed by .Segundo Benitez MD, on 02/10/2017 04:22 .T/ CC: CHRIS DAVIS PROCEDURE: XR Chest. CLINICAL INDICATION: Chest pain. TECHNIQUE: AP Portable chest. COMPARISON: No pertinent prior examinations were submitted for comparison. FINDINGS: The cardiomediastinal silhouette is normal. There is some minimal linear opacity at the right lung base peripherally. The osseous structures are unremarkable. IMPRESSION: Minimal right base opacity likely due to atelectasis. RPTAT: HIKT .Segundo Benitez MD, MD Date Time Electronically viewed and signed by .Segundo Benitez MD, on 02/09/2017 22:42 .T/ CC: MALINDA TOTH DO Labs Result Diagram: 02/10/17 0456 02/10/17 0456 Medications Medications Current Medications Acetaminophen (Tylenol Tab) 650 mg Q6H PRN PO PAIN LEVEL 1-3 OR FEVER; Start at 01:30 Docusate Sodium (Colace) 100 mg Q12H PRN PO CONSTIPATION; Start 02/10/17 at 01: 30 Bisacodyl (Dulcolax) 5 mg DAILY PRN PO CONSTIPATION; Start 02/10/17 at 01:30 Famotidine (Pepcid) 20 mg Q12 PO ; Start 02/10/17 at 09:00 CHRIS DAVIS Feb 10, 2017 09:33
[2017-02-10] MEDS: FAMOTIDINE 20 MG TAB PO SCH ×2 (09:43→21:33)
[2017-02-10 10:36] LABS: CALCIUM 9.2 mg/dl (8.4-10.2); CREATININE 0.91 mg/dl (0.61-1.24); POTASSIUM 3.5 mmol/L (3.5-5.1)
[2017-02-10 10:49] LABS: TROPONIN-I 0.014 ng/ml (0.00-0.12)
[2017-02-10 10:51] LABS: CK-MB 3.41 ng/ml (0.0-2.4)
[2017-02-10] MEDS: SOD CHLORIDE 0.9% 1,000 ML IV SCH ×2 (11:00→18:54)
[2017-02-10 11:26] LABS: FREE T3 3.52 pg/ml (2.77-5.27)
[2017-02-10 11:39] LABS: TRIIODOTHYRONINE 0.95 ng/ml (0.97-1.69)
[2017-02-10 12:43] LABS: CALCIUM 8.8 mg/dl (8.4-10.2); CREATININE 0.92 mg/dl (0.61-1.24); POTASSIUM 3.3 mmol/L (3.5-5.1)
--- NOTE | 2017-02-10 13:14 | CONS ---
Date/Time of Note Date/Time of Note DATE: 02/10/17 TIME: 13:06 Assessment/Plan Assessment/Plan Additional Assessment/Plan Possible syncope Hyponatremia History of hypertension -Patient with episode of loss of consciousness and unclear if respiratory and/ or cardiac arrest. Patient came to within 10 seconds and sat up. Serial cardiac enzymes remain negative, ECG with no significant ischemic abnormalities. Check echocardiogram, continue telemetry monitoring. Check carotid ultrasound. Electrolyte management as per our nephrology colleagues. As per history and physical, patient was on hydrochlorothiazide. Agree with stopping his antihypertensive. Consultation Date/Type/Reason Admit Date/Time Feb 09, 2017 at 23:31 Type of Consultation: cv Reason for Consultation Possible syncope Hx of Present Illness This is an 81-year-old female with past medical history of hypertension, hyponatremia who presents emergency room with multiple complaints. As per the daughter, patient has been having issues with his sodium level. Over the past few days, he has been more confused with decreased urine output, fatigue and erratic behavior. Yesterday, patient with dizziness and lightheadedness. Patient was told to lie down by the family and then patient had an episode where with his right hand he clenched his chest and stepped out his left arm. Patient family thought at that time, he lost consciousness but his arm was sticking straight up. Daughter then began doing chest compressions approximately 10 thrusts and mouth to mouth breathing. After approximately 10 seconds, patient gasps for air and sat up. Because of the above, patient brought to the emergency room for evaluation and care. As per daughter at bedside, no history of any cardiac issues in the past. No recent fevers or chills. No history of exertional chest pain or dyspnea. 12 point review of systems was performed with all pertinent positives and negatives mentioned above and all else is negative Past Medical History Medical History: hypertension Past Surgical History Past Surgical Hx: no surgical history Family History Significant Family History: no pertinent family hx Social History Alcohol Use: none Smoking Status: Former smoker Drug Use: none Other Social History Lives with family Exam/Review of Systems Vital Signs Vitals Vital Signs Date Time Temp Pulse Resp B/P Pulse Ox O2 Delivery O2 Flow Rate FiO2 02/10/17 12:18 72 02/10/17 11:23 98.4 18 136/68 95 02/10/17 02:04 Room Air Intake and Output 902/09/17 02/10/17 15:00 23:00 07:00 Intake Total 100 ml Output Total 700 ml Balance -600 ml Exam No apparent distress, following commands Constitutional: alert, frail, oriented Head: normocephalic Respiratory: other (Coarse breath sounds bilaterally, no wheezing) Cardiovascular: other (S1-S2 heard), regular rate and rhythm Gastrointestinal: bowel sounds, non-tender, soft Extremities: other (No edema) Results Result Diagram: 02/10/17 0456 02/10/17 1143 Results 24 hrs Laboratory Tests Test 02/09/17 21:40 02/09/17 23:00 02/10/17 03:45 02/10/17 04:56 Prothrombin Time 13.1 Prothrombin Time Ratio 1.0 INR International Normalized Ratio 0.99 Activated Partial Thromboplast Time 24.7 L Sodium Level 118 *L 120 L Potassium Level 3.9 3.3 L Chloride Level 80 L 84 L Carbon Dioxide Level 26 27 Anion Gap 16 12 Blood Urea Nitrogen 18 16 Creatinine 1.11 1.03 Glucose Level 151 108 # Calcium Level 9.4 8.8 Total Bilirubin 0.5 0.8 Direct Bilirubin 0.00 0.00 Indirect Bilirubin 0.5 0.8 Aspartate Amino Transf (AST/SGOT) 21 19 Alanine Aminotransferase (ALT/SGPT) 26 27 Alkaline Phosphatase 47 44 Troponin I < 0.012 0.020 B-Type Natriuretic Peptide 141 Total Protein 7.6 6.8 Albumin 4.4 3.9 Globulin 3.20 2.90 Albumin/Globulin Ratio 1.37 1.34 White Blood Count 12.6 #H 10.4 Red Blood Count 4.12 L 3.92 L Hemoglobin 14.2 13.1 L Hematocrit 36.7 L 35.1 L Mean Corpuscular Volume 89.1 89.5 Mean Corpuscular Hemoglobin 34.5 H 33.4 H Mean Corpuscular Hemoglobin Concent 38.7 H 37.3 H Red Cell Distribution Width 12.0 12.2 Platelet Count 194 249 # Mean Platelet Volume 10.6 H 10.0 Neutrophils % 88.3 H 77.5 H Lymphocytes % 5.5 L 11.5 L Monocytes % 5.6 10.1 Eosinophils % 0.0 0.2 Basophils % 0.2 0.2 Nucleated Red Blood Cells % 0.0 0.0 Neutrophils # (Manual) 11.1 H 8.1 H Lymphocytes # 0.7 L 1.2 Monocytes # 0.7 1.1 H Eosinophils # 0.0 0.0 Basophils # 0.0 0.0 Nucleated Red Blood Cells # 0.0 0.0 Urine Color YELLOW Urine Clarity SLIGHTLY CLOUDY A Urine pH 6.0 Urine Specific [place] 1.009 Urine Ketones NEGATIVE Urine Nitrite NEGATIVE Urine Bilirubin NEGATIVE Urine Urobilinogen NEGATIVE Urine Leukocyte Esterase NEGATIVE Urine Microscopic RBC 2 Urine Microscopic WBC 0 Urine Bacteria FEW A Urine Hemoglobin NEGATIVE Urine Osmolality 309 Urine Random Sodium 54 Urine Glucose NEGATIVE Urine Total Protein NEGATIVE Osmolality 250 L Magnesium Level 2.0 Creatine Kinase 141 Creatine Kinase Index 2.0 Creatinine Kinase MB (Mass) 2.78 H Thyroid Stimulating Hormone (TSH) 0.173 L Test 02/10/17 09:51 02/10/17 11:43 Sodium Level 120 L 121 L Potassium Level 3.5 3.3 L Chloride Level 84 L 84 L Carbon Dioxide Level 29 26 Anion Gap 11 14 Blood Urea Nitrogen 15 15 Creatinine 0.91 0.92 Glucose Level 93 123 Uric Acid 6.8 Calcium Level 9.2 8.8 Creatine Kinase 174 Creatine Kinase Index 2.0 Creatinine Kinase MB (Mass) 3.41 H Troponin I 0.014 Free Thyroxine 1.06 Thyroxine (T4) 6.9 Free Triiodothyronine (T3) pg/mL 3.52 Total Triiodothyronine 0.95 L Medications Medications Current Medications Acetaminophen (Tylenol Tab) 650 mg Q6H PRN PO PAIN LEVEL 1-3 OR FEVER; Start at 01:30 Docusate Sodium (Colace) 100 mg Q12H PRN PO CONSTIPATION; Start 02/10/17 at 01: 30 Bisacodyl (Dulcolax) 5 mg DAILY PRN PO CONSTIPATION; Start 02/10/17 at 01:30 Famotidine 20 mg 20 mg Q12 PO Last administered on 02/10/17t 09:43; Admin Dose 20 MG; Start 02/10/17 at 09:00 Sodium Chloride (NS) 1,000 ml @ 50 mls/hr Q20H IV ; Start 02/10/17 at 11:00 Procedures Procedures ECG done yesterday demonstrates sinus rhythm 90 bpm, anterior Q waves, nonspecific ST segment abnormalities Fernando Harper DO Feb 10, 2017 13:14
--- NOTE | 2017-02-10 15:17 | RADRPT ---
Echocardiogram Report Patient Name: GERARDO ROMO Gender: Male Date: 1935 Study Date: 10-Feb-2017 Furnace Operator: Amie Triplett [facility] Location: [id number] Ref. Physician: CHRIS DAVIS Quality: Good Procedures: Transthoracic echocardiogram with complete 2D, M-Mode, and doppler examination. Indications: suspect arrest at home. 2D/M Mode Doppler Measurement Value Normal Ranges Measurement Value Normal Ranges LVIDd 2D 4.5 3.5 - 5.6 cm AV Peak [place] 1.3 m/sec LVIDs 2D 2.4 2.1 - 4.1 cm AV Peak PG 7.0 mmHg LVPWd 2D 1.1 0.6 - 1.1 cm AI Peak PG 14.2 mmHg IVSd 2D 1.1 0.6 - 1.1 cm AI Peak [place] 1.9 m/sec AoR Diam 2D 3.6 2.0 - 3.7 cm AI PHT 627.1 msec EDV 2D 94.5 cm3 LVOT Peak [place] 1.1 m/sec ESV 2D 14.4 cm3 LVOT Peak PG 5.0 mmHg LA Dimen 2D 2.1 2.3 - 4.0 cm MV E Peak [place] 0.6 m/sec MV A Peak [place] 0.7 m/sec MV E/A 0.8 MV Decel Time 219 msec MV Decel Ida 3 MV E/A 0.8 TR Peak [place] 2.0 m/sec TR Peak PG 16.5 mmHg RVSP 20.0 mmHg Findings Left Ventricle: Normal left ventricular systolic function. Normal left ventricular cavity size. Mild concentric left ventricular hypertrophy. Ejection fraction is visually estimated at 65 %. Tissue Doppler/Mitral Doppler indices are consistent with impaired relaxation (Stage I diastolic dysfunction). Right Ventricle: Normal right ventricular size. Normal right ventricular systolic function. Left Atrium: The left atrium is normal in size. Right Atrium: The right atrium is normal in size. Mitral Valve: Mitral valve leaflets appear mildly thickened. Mild mitral annular calcification. Trace mitral regurgitation. Aortic Valve: No hemodynamically significant aortic stenosis by doppler. Aortic cusps appear mildly calcified. Mild to moderate aortic valve regurgitation. Tricuspid Valve: Normal appearance of the tricuspid valve. Estimated peak PA systolic pressure 20 mmHg. There is trace tricuspid regurgitation. Pulmonic Valve: Normal pulmonic valve appearance. Pericardium: Normal pericardium with no significant pericardial effusion. Aorta: Normal aortic root. IVC: Normal size and normal respiratory collapse consistent with normal right atrial pressure. Conclusions 1.Normal left ventricular systolic function. Normal left ventricular cavity size. Mild concentric left ventricular hypertrophy. Ejection fraction is visually estimated at 65 %. Tissue Doppler/Mitral Doppler indices are consistent with impaired relaxation (Stage I diastolic dysfunction). 2.Normal right ventricular size. Normal right ventricular systolic function. 3.The left atrium is normal in size. 4.The right atrium is normal in size. 5.No hemodynamically significant aortic stenosis by doppler. Aortic cusps appear mildly calcified. Mild to moderate aortic valve regurgitation. 6.No significant valvular stenosis or regurgitation seen of remaining visualized valves. 7.Normal pericardium with no significant pericardial effusion. Electronically Signed By: Fernando Harper 10-Feb-2017 15:16:34 -0700 Patient Name: GERARDO ROMO Study Date: 10-Feb-2017 [id number]
[2017-02-10] MEDS ORDERED: NACL 3% 500 ML IV SCH ×2 (15:30→19:00)
[2017-02-10] MEDS ORDERED: POTASSIUM CHLORIDE 250 ML IVPB ONE (16:00)
--- NOTE | 2017-02-10 16:51 | QN ---
Documentation Comment S: Patient seen and examined with daughter at bedside. Still c/o feeling bad but cant clarify what exactly is bothering him. he denies any chest pain, shortness of breath, nausea, vomiting, or abdominal issues. Does admit to suprapubic discomfort with urination O: VSS General: frail, mild distress/discomfort, washcloth over eyes CVS: regular rate and rhythm, no murmurs Lungs: coarse breath sounds b/l. equal chest rise Abd- soft, mild tenderness suprapubic area, nondistended, no rebound or guarding ext- muscle wasting LE b/l. moving all extremities, no edema, cyanosis, or clubbing A/P 1. Hyponatremia secondary to Hctz - Nephrology on board and recommendations appreciated - Will continue monitoring Na levels and follow nephrology recommendations for fluid management - Na stable at 120 2. Hypokalemia - 3.3, replaced 3. Dysphagia - will keep NPO except for medications at this time and continue with IV fluids - if dysphagia persists as hyponatremia resolves, will get a swallow eval to assess 4. ? Cardiac arrest - Cardiology on board and recommendations appreciated - will trend troponins - ECHO and carotid US ordered - will stop hctz upon discharge ALETA LOPEZ MD Feb 10, 2017 16:51
[2017-02-10] MEDS ORDERED: ENALAPRILAT 1.25 MG INJ IV PRN (19:00)
[2017-02-10] MEDS: hydrALAzine 20 MG INJ IV PRN (19:42)
[2017-02-10 19:54] LABS: ADD UMIC NO; UR ASCORBIC ACID 20 mg/dL (NEGATIVE); UR BILIRUBIN (Dip) NEGATIVE (NEGATIVE); UR BLOOD (Dip) NEGATIVE (NEGATIVE); UR CLARITY CLEAR (CLEAR); UR COLOR YELLOW (YELLOW); UR GLUCOSE (Dip) NEGATIVE (NEGATIVE); UR KETONES (Dip) TRACE mg/dL (NEGATIVE); UR LEUKOCYTE ESTERASE (Dip) NEGATIVE Leu/ul (NEGATIVE); UR NITRITE (Dip) NEGATIVE (NEGATIVE); UR SPECIFIC GRAVITY (Dip) 1.009 (1.003-1.030); UR TOTAL PROTEIN (Dip) NEGATIVE (NEGATIVE); UR UROBILINOGEN (Dip) NEGATIVE (NEGATIVE)
--- NOTE | 2017-02-10 22:59 | CONS ---
Date/Time of Note Date/Time of Note DATE: 02/10/17 TIME: 22:57 Assessment/Plan Assessment/Plan Chief Complaint/Hosp Course HYPONATREMIA ON DIUREYIC PLAN PER ORDER SIADH S/P ARREST HTN Problems: Consultation Date/Type/Reason Admit Date/Time Feb 09, 2017 at 23:31 Initial Consult Date Type of Consultation: [id number] HR Interval Summary Constitutional: no complaints, No disoriented Exam/Review of Systems Vital Signs Vitals Vital Signs Date Time Temp Pulse Resp B/P Pulse Ox O2 Delivery O2 Flow Rate FiO2 02/10/17 20:00 98.4 68 18 160/72 94 02/10/17 02:04 Room Air Intake and Output 02/09/17 02/09/17 02/10/17 15:00 23:00 07:00 Intake Total 100 ml Output Total 700 ml Balance -600 ml Exam ENMT: nl external ears & nose Neck: supple Respiratory: clear to auscultation Cardiovascular: regular rate and rhythm Gastrointestinal: bowel sounds, soft Musculoskeletal: nl extremities to inspection, nl gait and stance Extremities: normal pulses Neurological: 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 intact, nl mental status, nl speech, nl strength Results Result Diagram: 02/10/17 0456 02/10/17 1802 Results 24 hrs Laboratory Tests Test 02/09/17 23:00 02/10/17 03:45 02/10/17 04:56 02/10/17 09:51 White Blood Count 12.6 #H 10.4 Red Blood Count 4.12 L 3.92 L Hemoglobin 14.2 13.1 L Hematocrit 36.7 L 35.1 L Mean Corpuscular Volume 89.1 89.5 Mean Corpuscular Hemoglobin 34.5 H 33.4 H Mean Corpuscular Hemoglobin Concent 38.7 H 37.3 H Red Cell Distribution Width 12.0 12.2 Platelet Count 194 249 # Mean Platelet Volume 10.6 H 10.0 Neutrophils % 88.3 H 77.5 H Lymphocytes % 5.5 L 11.5 L Monocytes % 5.6 10.1 Eosinophils % 0.0 0.2 Basophils % 0.2 0.2 Nucleated Red Blood Cells % 0.0 0.0 Neutrophils # (Manual) 11.1 H 8.1 H Lymphocytes # 0.7 L 1.2 Monocytes # 0.7 1.1 H Eosinophils # 0.0 0.0 Basophils # 0.0 0.0 Nucleated Red Blood Cells # 0.0 0.0 Urine Color YELLOW Urine Clarity SLIGHTLY CLOUDY A Urine pH 6.0 Urine Specific [place] 1.009 Urine Ketones NEGATIVE Urine Nitrite NEGATIVE Urine Bilirubin NEGATIVE Urine Urobilinogen NEGATIVE Urine Leukocyte Esterase NEGATIVE Urine Microscopic RBC 2 Urine Microscopic WBC 0 Urine Bacteria FEW A Urine Hemoglobin NEGATIVE Urine Osmolality 309 Urine Random Sodium 54 Urine Glucose NEGATIVE Urine Total Protein NEGATIVE Sodium Level 120 L 120 L Potassium Level 3.3 L 3.5 Chloride Level 84 L 84 L Carbon Dioxide Level 27 29 Anion Gap 12 11 Blood Urea Nitrogen 16 15 Creatinine 1.03 0.91 Glucose Level 108 # 93 Osmolality 250 L Calcium Level 8.8 9.2 Magnesium Level 2.0 Total Bilirubin 0.8 Direct Bilirubin 0.00 Indirect Bilirubin 0.8 Aspartate Amino Transf (AST/SGOT) 19 Alanine Aminotransferase (ALT/SGPT) 27 Alkaline Phosphatase 44 Creatine Kinase 141 174 Creatine Kinase Index 2.0 2.0 Creatinine Kinase MB (Mass) 2.78 H 3.41 H Troponin I 0.020 0.014 Total Protein 6.8 Albumin 3.9 Globulin 2.90 Albumin/Globulin Ratio 1.34 Thyroid Stimulating Hormone (TSH) 0.173 L Uric Acid 6.8 Free Thyroxine 1.06 Thyroxine (T4) 6.9 Free Triiodothyronine (T3) pg/mL 3.52 Total Triiodothyronine 0.95 L Test 02/10/17 11:00 02/10/17 11:43 02/10/17 18:02 02/10/17 18:41 Urine Osmolality 289 Urine Random Sodium 54 Sodium Level 121 L 122 L Potassium Level 3.3 L Chloride Level 84 L Carbon Dioxide Level 26 Anion Gap 14 Blood Urea Nitrogen 15 Creatinine 0.92 Glucose Level 123 Osmolality 255 L Calcium Level 8.8 Urine Color YELLOW Urine Clarity CLEAR Urine pH 7.0 Urine Specific [place] 1.009 Urine Ketones TRACE A Urine Nitrite NEGATIVE Urine Bilirubin NEGATIVE Urine Urobilinogen NEGATIVE Urine Leukocyte Esterase NEGATIVE Urine Hemoglobin NEGATIVE Urine Glucose NEGATIVE Urine Total Protein NEGATIVE Medications Medications Current Medications Acetaminophen (Tylenol Tab) 650 mg Q6H PRN PO PAIN LEVEL 1-3 OR FEVER; Start at 01:30 Docusate Sodium (Colace) 100 mg Q12H PRN PO CONSTIPATION; Start 02/10/17 at 01: 30 Bisacodyl (Dulcolax) 5 mg DAILY PRN PO CONSTIPATION; Start 02/10/17 at 01:30 Famotidine 20 mg 20 mg Q12 PO Last administered on 02/10/17 21:33; Admin Dose 20 MG; Start 02/10/17 at 09:00 Sodium Chloride 1,000 ml @ 50 mls/hr Q20H IV Last administered on 02/10/17 18: 54; Admin Dose 50 MLS/HR; Start 02/10/17 at 11:00 Sodium Chloride (Sodium Chloride Iv 3%) 500 ml @ 40 mls/hr [id number] IV Last administered on 02/10/17 19:33; Admin Dose 40 MLS/HR; Start 02/10/17 at 19:00; Stop 02/10/17 at 22:59 Enalaprilat (Vasotec Iv) 0.625 mg Q4H PRN IV SBP >160; Start 02/10/17 at 19:00 Hydralazine HCl (Apresoline) 5 mg Q6H PRN IV SBP >160 Last administered on 19:42; Admin Dose 5 MG; Start 02/10/17 at 19:00 RACHEL BARRERA MD Feb 10, 2017 22:58
[2017-02-11] VITALS (11 sets, daily range): BP systolic 115–165; BP diastolic 56–73; PULSE 68–105; RESP 17–18
--- NOTE | 2017-02-11 02:15 | RADRPT ---
PROCEDURE: ULTRASOUND OF THE CAROTID ARTERIES: CLINICAL INDICATION: 81 years of age, male , syncope . COMPARISON: None available. TECHNIQUE: Dedicated color and spectral Doppler sonographic images of the carotid arterial systems w ere obtained. FINDINGS: The right common carotid, internal carotid and external carotid arteries are patent with no evidence of plaque. The left common carotid, internal carotid and external carotid arteries are patent. There is moderat e calcified atherosclerotic plaque at the carotid bulb and in the proximal internal carotid artery. Plaque estimate of stenosis on olivas-scale is 45%. Flow within the external carotid and vertebral arteries is antegrade. Additional comment: None. Location and Parameter Right Left CCA PSV (cm/sec) 85 109 ICA PSV proximal (cm/sec) 47 and 63 ICA PSV mid (cm/sec) 49 - 82 ICS PSV distal (cm/sec) 98 74 ICA/CCA peak systolic ratio 0.7 1 ICA EDV (cm/sec) 12 15 ECA PSV (cm/sec) 108 142 Right to left CCA PSV ratio: 0.8 (normal 0.7-1.3). IMPRESSION: Negative for evidence of hemodynamically significant stenosis in either right or left internal carot id artery. Right internal carotid artery velocities are normal. There is moderate calcified atherosc lerotic plaque at the left carotid bulb and in the proximal left internal carotid artery with less t dasilva 50% stenosis. Validated velocity measurements with angiographic measurements: velocity criteria are extrapolated from diameter data as defined by the Society of Radiologists in Ultrasound Consensu s Conference Radiology 2003; 229; 340-346. This study does indirectly reference the measurement of t he distal ICA diameter as the denominator for stenosis measurement. Estimated degree of stenosis is based on Society of Radiologists in Ultrasound Consensus Conference with parameters as follows::* Normal: ICA PSV < 125 cm/s, Plaque estimate none, ICA/CCA ratio < 2, ICA EDV < 40 cm/s <50% Stenosis: ICA PSV < 125 cm/s, Plaque estimate < 50%, ICA/CCA ratio < 2, ICA EDV < 40 cm/s 50-69% Stenosis: ICA PSV 125-230 cm/s, Plaque estimate > 50%, ICA/CCA ratio 2-4, ICA EDV 40-100 cm/s 70% or greater but less than near occlusion: ICA PSV > 230 cm/s, Plaque estimate > 50%, ICA/CCA ratio > 4, ICA EDV > 100 cm/s Near occlusion: High, low or undetectable ICA flow, Plaque visible, ICA/CCA ratio variable, ICA EDV variable. Total occlusion: Undetectable ICA flow and plaque visible. * Reference: Sumanth ALANIZ et al. Carotid Artery Stenosis: Olivas-scale and Doppler Ultrasound Diagnosis-So ciety of Radiologists in Ultrasound Consensus Conference. Radiology 2003; 229:340-346. RPTAT: HCTS Funmilayo Hackett Physician Date Time Electronically viewed and signed by Funmilayo Hackett Physician on 02/11/2017 02:14 CS/
[2017-02-11] MEDS ORDERED: LORAZEPAM 2 MG INJ ONE (03:19)
[2017-02-11 03:35] LABS: BASOPHIL # 0.1 10^3/ul (0.0-0.1); BASOPHILS % 0.4 % (0.0-2.0); EOSINOPHILS % 0.2 % (0.0-7.0); HEMATOCRIT 41.1 % (42.0-52.0); HEMOGLOBIN 15.3 g/dl (14.0-18.0); LYMPHOCYTES # 1.8 10^3/ul (0.8-2.9); LYMPHOCYTES % 14.7 % (15.0-51.0); MEAN CORPUSCULAR HGB CONC 37.2 g/dl (32.0-37.0); MEAN CORPUSCULAR VOLUME 91.3 fl (82.0-101.0); MEAN PLATELET VOLUME 9.1 fl (7.4-10.4); MONOCYTE # 1.1 10^3/ul (0.3-0.9); MONOCYTES % 8.8 % (0.0-11.0); NEUTROPHILS % 75.5 % (39.0-77.0); PLATELET COUNT 292 10^3/UL (140-415); RED CELL DISTRIBUTION WIDTH 12.2 % (11.5-14.5); WHITE BLOOD COUNT 12.2 10^3/ul (4.8-10.8)
--- NOTE | 2017-02-11 03:37 | EN ---
Date/Time of Note Date/Time of Note DATE: 02/11/17 TIME: 03:36 Event Note Medicine Medicine Event Note CORRECTIONAL NURSE note Patient seen and examined at the bedside. Patient was witnessed having jerking movements all over his body after urinating. He was awake but appeared confused. Daughter stateded he was displaying this behavior throughout the day as well, but this episode was worse. Of note patient is a daily clonazepam user. He usually takes 0.5mg once a day. He has been on it for 14 years and at one point was taking 2mg daily. Blood pressure was 200/98 with a heart rate of 120. Patient was given ativan 1mg. Patient subsequently improved with resolution of his jerking movements and was alert and responding to commands appropriately and conversing with family and nursing staff. Vitals initial: BP 200/98, HR 120 Vitals after ativan: BP: 144/64, HR 85 HEENT: NC/AT, eomi CVS: Sinus Tachy, no murmurs LUNGS: clear to auscultation bilatarelly, no rales Extremities: no edema Neuro: initially confused and jerking movements, after ativan patient was relaxed and alert and conversing appropriately with resolution of jerking movements. A/P 1. Benzo withdrawl; Stat ativan 1mg given resulting in resolution of symptoms and normalization of blood pressure and heart rate. Jerking movements resolved, back to baseline mentation. Ativan 0.5mg x1 q daily started, ativan 0.5mg prn ordered added. Swallow eval in the AM. If passes swallow eval, can resume home dose of clonazepam. Greater than 35 minutes of critical care time was spent on the care and management of this patient. CHRIS DAVIS Feb 11, 2017 03:37
[2017-02-11] MEDS ORDERED: LORAZEPAM 2 MG INJ IV PRN (04:00)
[2017-02-11] MEDS ORDERED: LORAZEPAM 2 MG INJ IV ONE ×2 (04:00)
[2017-02-11 04:02] LABS: ALBUMIN 4.3 g/dl (3.3-4.9); ALBUMIN/GLOBULIN RATIO 1.3; BILIRUBIN,INDIRECT 0.9 mg/dl (0-1.1); BILIRUBIN,TOTAL 0.9 mg/dl (0.2-1.3); CALCIUM 9.1 mg/dl (8.4-10.2); CREATININE 0.91 mg/dl (0.61-1.24); POTASSIUM 3.7 mmol/L (3.5-5.1); TOTAL PROTEIN 7.6 g/dl (6.1-8.1)
--- NOTE | 2017-02-11 06:22 | CONS ---
DATE OF ADMISSION: 02/09/2017 DATE OF CONSULTATION: 02/11/2017 Thank you, Dr. Austin, for kindly asking me to see this patient in Nephrology consultation. HISTORY OF PRESENT ILLNESS: The patient presented to this hospital with not eating or drinking and suddenly, as per ER note, he grabbed his chest and turned blue and stopped breathing. CPR was started by the patient's family and he woke up and presented to this hospital. Patient has been taking diuretic in the form of Diovan with hydrochlorothiazide, and the patient noted to have electrolyte imbalance. Patient's sodium was 120 and potassium 3.3; repeat sodium was 122. and patient has been placed on _ supplementation. Denies any headache, diplopia or blurred vision. PAST MEDICAL HISTORY: Positive for hypertension. The patient has no history of CA, no history of [place]. FAMILY HISTORY: Denies. SOCIAL HISTORY: Denies. MEDICATION: 1. Aspirin. 2. Celexa. 3. Clonazepam. 4. Diovan. REVIEW OF SYSTEMS: CONSTITUTIONAL: Patient with some weakness HEENT: Unremarkable. No headache, diplopia, or blurred vision. No earache. RESPIRATORY: No shortness of breath, cough or sputum, or recent fevers. Denies any sob GASTROINTESTINAL: Unremarkable for diarrhea. EXTREMITIES: neg CENTRAL NERVOUS SYSTEM: No weakness. Moving both upper and extremities. PHYSICAL EXAMINATION: VITAL SIGNS: Pulse 56, blood pressure 157 to 200. HEENT: Head is atraumatic, normocephalic. Pupils equal and reactive. NECK: Supple. There is no JVD. LUNGS: Clear. CARDIAC: S1, S2 normal. ABDOMEN: Soft, nontender, bowel sounds positive. No hepatosplenomegaly. No guarding. No rebound tenderness. EXTREMITIES: No cyanosis, clubbing, or edema. NEUROLOGIC: Patient is awake, alert, moving both upper and lower extremities. LABORATORY: . Patient has sodium 122. RADIOLOGY: Patient had CT of the brain, no acute findings. Chest x-ray: Minimal right basilar opacity likely due to atelectasis. IMPRESSION: 1. Hyponatremia, possibly due to diuretic; patient was on hydrochlorothiazide. 2. Underlying syndrome of inappropriate antidiuretic hormone secretion. 3. Status post cardiorespiratory arrest and CPR per family. 4. Hypokalemia. 5. History of anxiety. 6. History of depression. PLAN: Obtain urine sodium as well as panel. Patient will be given 3 percent saline intermittently with normal saline. Patient electrolytes will be monitored very closely. Fluid restriction. I discussed with the family to monitor any intake by mouth, avoid tap water. Thank you, Dr. Austin and Dr. Cazares, for kindly asking me to see this patient in nephrology consultation. Dictated By: Tavares Perdue MD /diane/tahir /Document#: [id number] MTDD
[2017-02-11] MEDS ORDERED: LORAZEPAM 2 MG INJ IV SCH (09:00)
[2017-02-11] MEDS: FAMOTIDINE 20 MG TAB PO SCH ×2 (09:00→11:05)
--- NOTE | 2017-02-11 15:20 | CONS ---
Date/Time of Note Date/Time of Note DATE: 02/11/17 TIME: 15:17 Assessment/Plan Assessment/Plan Additional Assessment/Plan Possible syncope Hyponatremia Preserved ejection fraction History of hypertension Mild to moderate carotid artery stenosis -Patient with episode yesterday evening of change in mental status and jerking like movements when attempting to urinate. Patient was standing with no loss of consciousness and remained standing. Etiology of this episode is unclear. Sodium level has improved. No significant arrhythmias seen on telemetry. Echocardiogram with preserved ejection fraction. Would consider neurology evaluation. Consultation Date/Type/Reason Admit Date/Time Feb 09, 2017 at 23:31 Initial Consult Date Type of Consultation: cv 24 HR Interval Summary Free Text/Dictation Patient seen and examined. Patient with episode last night where he was standing and attempting to urinate. Afterwards, patient with jerking like movements but remained standing. As per daughter, patient with altered mental consciousness at that time. Currently denies any chest pain or shortness of breath or dizziness Exam/Review of Systems Vital Signs Vitals Vital Signs Date Time Temp Pulse Resp B/P Pulse Ox O2 Delivery O2 Flow Rate FiO2 02/11/17 12:17 97.7 73 18 144/64 95 02/10/17 02:04 Room Air Intake and Output 02/10/17 02/10/17 02/11/17 15:00 23:00 07:00 Intake Total 200 ml Output Total 400 ml Balance -200 ml Exam Following commands, no apparent distress Constitutional: alert Head: normocephalic Respiratory: other (First breath sounds bilaterally, no wheezing) Cardiovascular: other (S1-S2 heard), regular rate and rhythm Gastrointestinal: bowel sounds, non-tender, soft Extremities: other (No edema) Results Result Diagram: 02/11/17 0320 02/11/17 1215 Results 24 hrs Laboratory Tests Test 02/10/17 18:02 02/10/17 18:41 02/11/17 00:50 02/11/17 03:18 Sodium Level 122 L 126 L Urine Color YELLOW Urine Clarity CLEAR Urine pH 7.0 Urine Specific [place] 1.009 Urine Ketones TRACE A Urine Nitrite NEGATIVE Urine Bilirubin NEGATIVE Urine Urobilinogen NEGATIVE Urine Leukocyte Esterase NEGATIVE Urine Hemoglobin NEGATIVE Urine Glucose NEGATIVE Urine Total Protein NEGATIVE Bedside Glucose 114 Test 02/11/17 03:20 02/11/17 12:15 White Blood Count 12.2 H Red Blood Count 4.50 L Hemoglobin 15.3 Hematocrit 41.1 L Mean Corpuscular Volume 91.3 Mean Corpuscular Hemoglobin 34.0 H Mean Corpuscular Hemoglobin Concent 37.2 H Red Cell Distribution Width 12.2 Platelet Count 292 Mean Platelet Volume 9.1 Neutrophils % 75.5 Lymphocytes % 14.7 L Monocytes % 8.8 Eosinophils % 0.2 Basophils % 0.4 Nucleated Red Blood Cells % 0.0 Neutrophils # (Manual) 9.2 H Lymphocytes # 1.8 Monocytes # 1.1 H Eosinophils # 0.0 Basophils # 0.1 Nucleated Red Blood Cells # 0.0 Sodium Level 129 L 128 L Potassium Level 3.7 Chloride Level 94 #L Carbon Dioxide Level 21 Anion Gap 18 H Blood Urea Nitrogen 12 Creatinine 0.91 Glucose Level 122 Calcium Level 9.1 Magnesium Level 1.8 Total Bilirubin 0.9 Direct Bilirubin 0.00 Indirect Bilirubin 0.9 Aspartate Amino Transf (AST/SGOT) 24 Alanine Aminotransferase (ALT/SGPT) 25 Alkaline Phosphatase 60 Total Protein 7.6 Albumin 4.3 Globulin 3.30 H Albumin/Globulin Ratio 1.30 Medications Medications Current Medications Acetaminophen (Tylenol Tab) 650 mg Q6H PRN PO PAIN LEVEL 1-3 OR FEVER; Start at 01:30 Docusate Sodium (Colace) 100 mg Q12H PRN PO CONSTIPATION; Start 02/10/17 at 01: 30 Bisacodyl (Dulcolax) 5 mg DAILY PRN PO CONSTIPATION; Start 02/10/17 at 01:30 Famotidine 20 mg 20 mg Q12 PO Last administered on 02/11/17 11:05; Admin Dose 20 MG; Start 02/10/17 at 09:00 Sodium Chloride (NS) 1,000 ml @ 50 mls/hr Q20H IV Last administered on 18:54; Admin Dose 50 MLS/HR; Start 02/10/17 at 11:00 Enalaprilat (Vasotec Iv) 0.625 mg Q4H PRN IV SBP >160; Start 02/10/17 at 19:00 Hydralazine HCl (Apresoline) 5 mg Q6H PRN IV SBP >160 Last administered on 19:42; Admin Dose 5 MG; Start 02/10/17 at 19:00 Lorazepam (Ativan) 1 mg DAILY PRN IV AGITATION/ANXIETY; Start 02/11/17 at 04:00 Clonazepam (Klonopin) 0.5 mg QHS PO ; Start 02/11/17 at 21:00 Fernando Harper DO Feb 11, 2017 15:20
--- NOTE | 2017-02-11 16:56 | PN ---
Date/Time of Note Date/Time of Note DATE: 02/11/17 TIME: 16:56 Assessment/Plan VTE Prophylaxis VTE Prophylaxis Intervention: other Lines/Catheters IV [facility] Type [facility]from [facility] Peripheral IV Urinary Cath still in place: No Assessment/Plan Chief Complaint/Hosp Course HYPONATREMIA ON DIUREYIC PLAN PER ORDER SIADH S/P ARREST HTN ck labs Problems: Subjective 24 Hr Interval Summary Cardiovascular: no complaints Gastrointestinal: no complaints Exam/Review of Systems Vital Signs Vitals Vital Signs Date Time Temp Pulse Resp B/P Pulse Ox O2 Delivery O2 Flow Rate FiO2 02/11/17 16:06 93 02/11/17 15:36 98.6 18 165/73 93 02/10/17 02:04 Room Air Intake and Output 02/10/17 02/10/17 02/11/17 15:00 23:00 07:00 Intake Total 200 ml Output Total 400 ml Balance -200 ml Exam Respiratory: clear to auscultation Cardiovascular: regular rate and rhythm Genitourinary - Male: nl penis Musculoskeletal: nl extremities to inspection Extremities: No edema Results Result Diagram: 02/11/17 0320 02/11/17 1215 Results 24 hrs Laboratory Tests Test 02/10/17 18:02 02/10/17 18:41 02/11/17 00:50 02/11/17 03:18 Sodium Level 122 L 126 L Urine Color YELLOW Urine Clarity CLEAR Urine pH 7.0 Urine Specific [place] 1.009 Urine Ketones TRACE A Urine Nitrite NEGATIVE Urine Bilirubin NEGATIVE Urine Urobilinogen NEGATIVE Urine Leukocyte Esterase NEGATIVE Urine Hemoglobin NEGATIVE Urine Glucose NEGATIVE Urine Total Protein NEGATIVE Bedside Glucose 114 Test 02/11/17 03:20 02/11/17 12:15 White Blood Count 12.2 H Red Blood Count 4.50 L Hemoglobin 15.3 Hematocrit 41.1 L Mean Corpuscular Volume 91.3 Mean Corpuscular Hemoglobin 34.0 H Mean Corpuscular Hemoglobin Concent 37.2 H Red Cell Distribution Width 12.2 Platelet Count 292 Mean Platelet Volume 9.1 Neutrophils % 75.5 Lymphocytes % 14.7 L Monocytes % 8.8 Eosinophils % 0.2 Basophils % 0.4 Nucleated Red Blood Cells % 0.0 Neutrophils # (Manual) 9.2 H Lymphocytes # 1.8 Monocytes # 1.1 H Eosinophils # 0.0 Basophils # 0.1 Nucleated Red Blood Cells # 0.0 Sodium Level 129 L 128 L Potassium Level 3.7 Chloride Level 94 #L Carbon Dioxide Level 21 Anion Gap 18 H Blood Urea Nitrogen 12 Creatinine 0.91 Glucose Level 122 Calcium Level 9.1 Magnesium Level 1.8 Total Bilirubin 0.9 Direct Bilirubin 0.00 Indirect Bilirubin 0.9 Aspartate Amino Transf (AST/SGOT) 24 Alanine Aminotransferase (ALT/SGPT) 25 Alkaline Phosphatase 60 Total Protein 7.6 Albumin 4.3 Globulin 3.30 H Albumin/Globulin Ratio 1.30 Medications Medications Current Medications Acetaminophen (Tylenol Tab) 650 mg Q6H PRN PO PAIN LEVEL 1-3 OR FEVER; Start at 01:30 Docusate Sodium (Colace) 100 mg Q12H PRN PO CONSTIPATION; Start 02/10/17 at 01: 30 Bisacodyl (Dulcolax) 5 mg DAILY PRN PO CONSTIPATION; Start 02/10/17 at 01:30 Famotidine 20 mg 20 mg Q12 PO Last administered on 02/10/17 21:33; Admin Dose 20 MG; Start 02/10/17 at 09:00 Sodium Chloride (NS) 1,000 ml @ 50 mls/hr Q20H IV Last administered on 18:54; Admin Dose 50 MLS/HR; Start 02/10/17 at 11:00 Enalaprilat (Vasotec Iv) 0.625 mg Q4H PRN IV SBP >160; Start 02/10/17 at 19:00 Hydralazine HCl (Apresoline) 5 mg Q6H PRN IV SBP >160 Last administered on 19:42; Admin Dose 5 MG; Start 02/10/17 at 19:00 Lorazepam (Ativan) 1 mg DAILY PRN IV AGITATION/ANXIETY; Start 02/11/17 at 04:00 Clonazepam (Klonopin) 0.5 mg QHS PO ; Start 02/11/17 at 21:00 RACHEL BARRERA MD Feb 11, 2017 16:56
--- NOTE | 2017-02-11 17:03 | PN ---
Date/Time of Note Date/Time of Note DATE: 02/11/17 TIME: 17:03 Assessment/Plan VTE Prophylaxis VTE Prophylaxis Intervention: heparin Lines/Catheters IV Catheter Type (from Nrs): Peripheral IV Urinary Cath still in place: No Assessment/Plan Assessment/Plan 1. Hyponatremia secondary to Hctz - Nephrology on board and recommendations appreciated - Will continue monitoring Na levels and follow nephrology recommendations for fluid management - Na stable at 129 2. Hypokalemia - stable. will continue monitoring 3. Dysphagia - failed swallow evaluation due to confusion - Will attempt tomorrow 4. ?Benzo withdrawal - Patient has confusion and UE tremors which may be secondary to Klonopin withdrawal - Resumed patients home dose 0.5mg qHS 5. ? Cardiac arrest - Cardiology on board and recommendations appreciated - troponins negative - ECHO and carotid US stable - will stop hctz upon discharge Subjective 24 Hr Interval Summary Free Text/Dictation Patient seen and examined with family at bedside. Feeling better but still experiencing pain with urination. Denies any chest pain, shortness of breath, nausea, vomiting, dizziness, or headache. Has slight tremors in UE with movement. Exam/Review of Systems Vital Signs Vitals Vital Signs Date Time Temp Pulse Resp B/P Pulse Ox O2 Delivery O2 Flow Rate FiO2 02/11/17 16:06 93 02/11/17 15:36 98.6 18 165/73 93 02/10/17 02:04 Room Air Intake and Output 02/10/17 02/10/17 02/11/17 15:00 23:00 07:00 Intake Total 200 ml Output Total 400 ml Balance -200 ml Exam General: More awake and alert this am. able to name all his family members at bedside but unsure location. HEENT: NC/AT, EOM intact, PERRL Neck: Supple with full range of motion. Lungs: Clear to auscultation bilaterally no crackles rales or wheezing Heart:: Regular rhythm and rate. No murmurs Abdomen: Soft , nontender, nondistended , bowel sounds are present. No guarding no rebound tenderness , Extremities: tremor of UE at rest and with movement Results Result Diagram: 02/11/17 0320 02/11/17 1215 Results 24 hrs Laboratory Tests Test 02/10/17 18:02 02/10/17 18:41 02/11/17 00:50 02/11/17 03:18 Sodium Level 122 L 126 L Urine Color YELLOW Urine Clarity CLEAR Urine pH 7.0 Urine Specific [place] 1.009 Urine Ketones TRACE A Urine Nitrite NEGATIVE Urine Bilirubin NEGATIVE Urine Urobilinogen NEGATIVE Urine Leukocyte Esterase NEGATIVE Urine Hemoglobin NEGATIVE Urine Glucose NEGATIVE Urine Total Protein NEGATIVE Bedside Glucose 114 Test 02/11/17 03:20 02/11/17 12:15 White Blood Count 12.2 H Red Blood Count 4.50 L Hemoglobin 15.3 Hematocrit 41.1 L Mean Corpuscular Volume 91.3 Mean Corpuscular Hemoglobin 34.0 H Mean Corpuscular Hemoglobin Concent 37.2 H Red Cell Distribution Width 12.2 Platelet Count 292 Mean Platelet Volume 9.1 Neutrophils % 75.5 Lymphocytes % 14.7 L Monocytes % 8.8 Eosinophils % 0.2 Basophils % 0.4 Nucleated Red Blood Cells % 0.0 Neutrophils # (Manual) 9.2 H Lymphocytes # 1.8 Monocytes # 1.1 H Eosinophils # 0.0 Basophils # 0.1 Nucleated Red Blood Cells # 0.0 Sodium Level 129 L 128 L Potassium Level 3.7 Chloride Level 94 #L Carbon Dioxide Level 21 Anion Gap 18 H Blood Urea Nitrogen 12 Creatinine 0.91 Glucose Level 122 Calcium Level 9.1 Magnesium Level 1.8 Total Bilirubin 0.9 Direct Bilirubin 0.00 Indirect Bilirubin 0.9 Aspartate Amino Transf (AST/SGOT) 24 Alanine Aminotransferase (ALT/SGPT) 25 Alkaline Phosphatase 60 Total Protein 7.6 Albumin 4.3 Globulin 3.30 H Albumin/Globulin Ratio 1.30 Medications Medications Current Medications Acetaminophen (Tylenol Tab) 650 mg Q6H PRN PO PAIN LEVEL 1-3 OR FEVER; Start at 01:30 Docusate Sodium (Colace) 100 mg Q12H PRN PO CONSTIPATION; Start 02/10/17 at 01: 30 Bisacodyl (Dulcolax) 5 mg DAILY PRN PO CONSTIPATION; Start 02/10/17 at 01:30 Famotidine 20 mg 20 mg Q12 PO Last administered on 02/10/17 21:33; Admin Dose 20 MG; Start 02/10/17 at 09:00 Sodium Chloride (NS) 1,000 ml @ 50 mls/hr Q20H IV Last administered on 18:54; Admin Dose 50 MLS/HR; Start 02/10/17 at 11:00 Enalaprilat (Vasotec Iv) 0.625 mg Q4H PRN IV SBP >160; Start 02/10/17 at 19:00 Hydralazine HCl (Apresoline) 5 mg Q6H PRN IV SBP >160 Last administered on t 19:42; Admin Dose 5 MG; Start 02/10/17 at 19:00 Lorazepam (Ativan) 1 mg DAILY PRN IV AGITATION/ANXIETY; Start 02/11/17 at 04:00 Clonazepam (Klonopin) 0.5 mg QHS PO ; Start 02/11/17 at 21:00 ALETA LOPEZ MD Feb 11, 2017 17:03
[2017-02-11] MEDS ORDERED: clonAZEPAM 0.5 MG TAB PO SCH (21:00)
[2017-02-11] MEDS: SOD CHLORIDE 0.9% 1,000 ML IV SCH (21:32)
[2017-02-11] MEDS: FAMOTIDINE 20 MG INJ IV SCH (21:32)
[2017-02-12] VITALS (13 sets, daily range): BP systolic 156–201; BP diastolic 71–89; PULSE 78–116; RESP 17–19
[2017-02-12] MEDS ORDERED: LORAZEPAM 2 MG INJ IV ONE ×2 (00:30→04:30)
[2017-02-12] MEDS: hydrALAzine 20 MG INJ IV PRN ×2 (01:07→15:27)
[2017-02-12 08:06] LABS: BASOPHIL # 0.1 10^3/ul (0.0-0.1); BASOPHILS % 0.7 % (0.0-2.0); EOSINOPHILS # 0.1 10^3/ul (0.0-0.5); EOSINOPHILS % 0.8 % (0.0-7.0); HEMATOCRIT 40.8 % (42.0-52.0); HEMOGLOBIN 14.6 g/dl (14.0-18.0); LYMPHOCYTES # 1.9 10^3/ul (0.8-2.9); LYMPHOCYTES % 17.3 % (15.0-51.0); MEAN CORPUSCULAR HGB CONC 35.8 g/dl (32.0-37.0); MEAN CORPUSCULAR VOLUME 92.1 fl (82.0-101.0); MEAN PLATELET VOLUME 10.2 fl (7.4-10.4); MONOCYTES % 9.2 % (0.0-11.0); NEUTROPHILS % 71.7 % (39.0-77.0); PLATELET COUNT 238 10^3/UL (140-415); RED BLOOD COUNT 4.43 10^6/ul (4.70-6.10); RED CELL DISTRIBUTION WIDTH 12.4 % (11.5-14.5); WHITE BLOOD COUNT 10.9 10^3/ul (4.8-10.8)
[2017-02-12] MEDS: FAMOTIDINE 20 MG INJ IV SCH ×2 (08:39→20:50)
[2017-02-12 08:43] LABS: ALBUMIN 3.7 g/dl (3.3-4.9); ALBUMIN/GLOBULIN RATIO 1.27; BILIRUBIN,INDIRECT 0.7 mg/dl (0-1.1); BILIRUBIN,TOTAL 0.7 mg/dl (0.2-1.3); CALCIUM 9.1 mg/dl (8.4-10.2); CREATININE 0.81 mg/dl (0.61-1.24); POTASSIUM 3.3 mmol/L (3.5-5.1); TOTAL PROTEIN 6.6 g/dl (6.1-8.1)
--- NOTE | 2017-02-12 11:41 | CONS ---
Date/Time of Note Date/Time of Note DATE: 02/12/17 TIME: 11:39 Assessment/Plan Assessment/Plan Chief Complaint/Hosp Course 1. CKD mild 2. Electrolyte imbalance: HYPONATREMIA 3. SIADH 4. S/P ARREST 5. HTN, uncontrolled 6. Dysphagia Problems: Additional Assessment/Plan 1. continue IV fluids 2. Optimization of kidney function 3. Potassium supplement Consultation Date/Type/Reason Admit Date/Time Feb 09, 2017 at 23:31 Initial Consult Date 02/11/2017 Type of Consultation: nephrology Reason for Consultation Dr Perdue Exam/Review of Systems Vital Signs Vitals Vital Signs Date Time Temp Pulse Resp B/P Pulse Ox O2 Delivery O2 Flow Rate FiO2 02/12/17 11:22 98.3 99 18 160/76 96 02/10/17 02:04 Room Air Intake and Output 02/11/17 02/11/17 02/12/17 15:00 23:00 07:00 Intake Total 600 ml Output Total 400 ml 400 ml Balance -400 ml 200 ml Exam hard of hearing Constitutional: other (confused) Neck: supple Respiratory: diminished breath sounds Cardiovascular: regular rate and rhythm Results Result Diagram: 02/12/17 0655 02/12/17 0655 Results 24 hrs Laboratory Tests Test 02/11/17 12:15 02/11/17 16:23 02/11/17 17:32 02/12/17 06:55 Sodium Level 128 L 131 L 130 L Magnesium Level 1.8 White Blood Count 10.9 H Red Blood Count 4.43 L Hemoglobin 14.6 Hematocrit 40.8 L Mean Corpuscular Volume 92.1 Mean Corpuscular Hemoglobin 33.0 Mean Corpuscular Hemoglobin Concent 35.8 Red Cell Distribution Width 12.4 Platelet Count 238 Mean Platelet Volume 10.2 Neutrophils % 71.7 Lymphocytes % 17.3 Monocytes % 9.2 Eosinophils % 0.8 Basophils % 0.7 Nucleated Red Blood Cells % 0.0 Neutrophils # (Manual) 7.8 H Lymphocytes # 1.9 Monocytes # 1.0 H Eosinophils # 0.1 Basophils # 0.1 Nucleated Red Blood Cells # 0.0 Potassium Level 3.3 L Chloride Level 95 L Carbon Dioxide Level 22 Anion Gap 16 Blood Urea Nitrogen 13 Creatinine 0.81 Glucose Level 69 #L Calcium Level 9.1 Total Bilirubin 0.7 Direct Bilirubin 0.00 Indirect Bilirubin 0.7 Aspartate Amino Transf (AST/SGOT) 23 Alanine Aminotransferase (ALT/SGPT) 30 Alkaline Phosphatase 53 Total Protein 6.6 # Albumin 3.7 Globulin 2.90 Albumin/Globulin Ratio 1.27 Medications Medications Current Medications Acetaminophen (Tylenol Tab) 650 mg Q6H PRN PO PAIN LEVEL 1-3 OR FEVER; Start at 01:30 Docusate Sodium (Colace) 100 mg Q12H PRN PO CONSTIPATION; Start 02/10/17 at 01: 30 Bisacodyl 5 mg 5 mg DAILY PRN PO CONSTIPATION; Start 02/10/17 at 01:30 Sodium Chloride (NS) 1,000 ml @ 50 mls/hr Q20H IV Last administered on 21:32; Admin Dose 50 MLS/HR; Start 02/10/17 at 11:00 Enalaprilat (Vasotec Iv) 0.625 mg Q4H PRN IV SBP >160 Last administered on 08:40; Admin Dose 0.625 MG; Start 02/10/17 at 19:00 Hydralazine HCl (Apresoline) 5 mg Q6H PRN IV SBP >160 Last administered on 01:07; Admin Dose 5 MG; Start 02/10/17 at 19:00 Lorazepam (Ativan) 1 mg DAILY PRN IV AGITATION/ANXIETY Last administered on 02/11 17:50; Admin Dose 1 MG; Start 02/11/17 at 04:00 Famotidine (Pepcid Iv) 20 mg BID IV Last administered on 02/12/17 08:39; Admin Dose 20 MG; Start 02/11/17 at 21:30 Lorazepam (Ativan) 0.5 mg HS IV ; Start 02/12/17 at 21:00 BHAVANA ROACH Feb 12, 2017 11:41
--- NOTE | 2017-02-12 12:44 | PN ---
Date/Time of Note Date/Time of Note DATE: 02/12/17 TIME: 12:43 Assessment/Plan VTE Prophylaxis VTE Prophylaxis Intervention: heparin Lines/Catheters [facility] ([facility] Peripheral IV Urinary Cath still in place: No Assessment/Plan Assessment/Plan 1. Hyponatremia secondary to Hctz - Nephrology on board and recommendations appreciated - Will continue monitoring Na levels and follow nephrology recommendations for fluid management - Na stable at 130 2. Hypokalemia - 3.3. replaced - will continue monitoring 3. Dysphagia - failed swallow evaluation due to confusion. Will continue trying and advance as tolerated 4. Benzo withdrawal - Resumed patients home dose 0.5mg qHS 5. ? Cardiac arrest - Cardiology on board and recommendations appreciated - troponins negative - ECHO and carotid US stable - will stop hctz upon discharge 6. Hypertension - BP has been elevated and will start Vasotec IV daily - Norvasc BID if patient able to swallow medications - Will continue monitoring and adjust as needed Subjective 24 Hr Interval Summary Free Text/Dictation Patient seen and examined with daughter at bedside. Patient is still confused but more cheery and interactive. No acute overnight events. Exam/Review of Systems Vital Signs Vitals Vital Signs Date Time Temp Pulse Resp B/P Pulse Ox O2 Delivery O2 Flow Rate FiO2 02/12/17 12:27 104 02/12/17 11:22 98.3 18 160/76 96 02/10/17 02:04 Room Air Intake and Output 02/11/17 02/11/17 02/12/17 14:59 22:59 06:59 Intake Total 600 ml Output Total 400 ml 400 ml Balance -400 ml 200 ml Exam General: More awake and interactive. Still confused and states is in [facility] when asked location. Recognizes daughter. HEENT: NC/AT, EOM intact, PERRL Neck: Supple with full range of motion. Lungs: Clear to auscultation bilaterally no crackles rales or wheezing Heart:: Regular rhythm and rate. No murmurs Abdomen: Soft , nontender, nondistended , bowel sounds are present. No guarding no rebound tenderness , Extremities: no tremor witness with movement or rest Results Result Diagram: 02/12/17 0655 02/12/17 0655 Results 24 hrs Laboratory Tests Test 02/11/17 16:23 02/11/17 17:32 02/12/17 06:55 Sodium Level 131 L 130 L Magnesium Level 1.8 White Blood Count 10.9 H Red Blood Count 4.43 L Hemoglobin 14.6 Hematocrit 40.8 L Mean Corpuscular Volume 92.1 Mean Corpuscular Hemoglobin 33.0 Mean Corpuscular Hemoglobin Concent 35.8 Red Cell Distribution Width 12.4 Platelet Count 238 Mean Platelet Volume 10.2 Neutrophils % 71.7 Lymphocytes % 17.3 Monocytes % 9.2 Eosinophils % 0.8 Basophils % 0.7 Nucleated Red Blood Cells % 0.0 Neutrophils # (Manual) 7.8 H Lymphocytes # 1.9 Monocytes # 1.0 H Eosinophils # 0.1 Basophils # 0.1 Nucleated Red Blood Cells # 0.0 Potassium Level 3.3 L Chloride Level 95 L Carbon Dioxide Level 22 Anion Gap 16 Blood Urea Nitrogen 13 Creatinine 0.81 Glucose Level 69 #L Calcium Level 9.1 Total Bilirubin 0.7 Direct Bilirubin 0.00 Indirect Bilirubin 0.7 Aspartate Amino Transf (AST/SGOT) 23 Alanine Aminotransferase (ALT/SGPT) 30 Alkaline Phosphatase 53 Total Protein 6.6 # Albumin 3.7 Globulin 2.90 Albumin/Globulin Ratio 1.27 Medications Medications Current Medications Acetaminophen (Tylenol Tab) 650 mg Q6H PRN PO PAIN LEVEL 1-3 OR FEVER; Start at 01:30 Docusate Sodium (Colace) 100 mg Q12H PRN PO CONSTIPATION; Start 02/10/17 at 01: 30 Bisacodyl 5 mg 5 mg DAILY PRN PO CONSTIPATION; Start 02/10/17 at 01:30 Sodium Chloride (NS) 1,000 ml @ 50 mls/hr Q20H IV Last administered on 21:32; Admin Dose 50 MLS/HR; Start 02/10/17 at 11:00 Enalaprilat (Vasotec Iv) 0.625 mg Q4H PRN IV SBP >160 Last administered on 08:40; Admin Dose 0.625 MG; Start 02/10/17 at 19:00 Hydralazine HCl (Apresoline) 5 mg Q6H PRN IV SBP >160 Last administered on 01:07; Admin Dose 5 MG; Start 02/10/17 at 19:00 Lorazepam (Ativan) 1 mg DAILY PRN IV AGITATION/ANXIETY Last administered on 02/11 17:50; Admin Dose 1 MG; Start 02/11/17 at 04:00 Famotidine (Pepcid Iv) 20 mg BID IV Last administered on 02/12/17 08:39; Admin Dose 20 MG; Start 02/11/17 at 21:30 Lorazepam 0.5 mg 0.5 mg HS IV ; Start 02/12/17 at 21:00 Potassium Chloride/Dextrose (KCl/D5W) 55 ml @ 50 mls/hr Q1H IV ; Start 02/12/17 at 12:30; Stop 02/12/17 at 15:29 ALETA LOPEZ MD Feb 12, 2017 12:44
[2017-02-12] MEDS ORDERED: POTASSIUM CHLORIDE 50 ML IVPB SCH (13:00)
[2017-02-12] MEDS: ENALAPRILAT 1.25 MG INJ IV SCH (13:27)
[2017-02-12] MEDS: POTASSIUM CHLORIDE 10 MEQ in DEXTROSE 5% 50 ML IV SCH ×3 (13:28→15:51)
--- NOTE | 2017-02-12 14:47 | CONS ---
Date/Time of Note Date/Time of Note DATE: 02/12/17 TIME: 14:45 Assessment/Plan Assessment/Plan Additional Assessment/Plan Possible syncope Hyponatremia Preserved ejection fraction History of hypertension Mild to moderate carotid artery stenosis -Blood pressure trend elevated, will start patient on Norvasc, maintain potassium above 4.0 and magnesium above 2.0. Consultation Date/Type/Reason Admit Date/Time Feb 09, 2017 at 23:31 Type of Consultation: cv 24 HR Interval Summary Free Text/Dictation Patient seen and examined, son in law at bedside. Exam/Review of Systems Vital Signs Vitals Vital Signs Date Time Temp Pulse Resp B/P Pulse Ox O2 Delivery O2 Flow Rate FiO2 02/12/17 12:27 104 02/12/17 11:22 98.3 18 160/76 96 02/10/17 02:04 Room Air Intake and Output 02/11/17 02/11/17 02/12/17 14:59 22:59 06:59 Intake Total 600 ml Output Total 400 ml 400 ml Balance -400 ml 200 ml Exam Following commands, no apparent distress Constitutional: alert Head: normocephalic Respiratory: other (Coarse breath sounds bilaterally, no wheezing) Cardiovascular: other (S1-S2 heard), regular rate and rhythm Gastrointestinal: bowel sounds, non-tender, soft Extremities: other (No edema) Results Result Diagram: 02/12/17 0655 02/12/17 1136 Results 24 hrs Laboratory Tests Test 02/11/17 16:23 02/11/17 17:32 02/12/17 06:55 02/12/17 11:36 Sodium Level 131 L 130 L 130 L Magnesium Level 1.8 White Blood Count 10.9 H Red Blood Count 4.43 L Hemoglobin 14.6 Hematocrit 40.8 L Mean Corpuscular Volume 92.1 Mean Corpuscular Hemoglobin 33.0 Mean Corpuscular Hemoglobin Concent 35.8 Red Cell Distribution Width 12.4 Platelet Count 238 Mean Platelet Volume 10.2 Neutrophils % 71.7 Lymphocytes % 17.3 Monocytes % 9.2 Eosinophils % 0.8 Basophils % 0.7 Nucleated Red Blood Cells % 0.0 Neutrophils # (Manual) 7.8 H Lymphocytes # 1.9 Monocytes # 1.0 H Eosinophils # 0.1 Basophils # 0.1 Nucleated Red Blood Cells # 0.0 Potassium Level 3.3 L Chloride Level 95 L Carbon Dioxide Level 22 Anion Gap 16 Blood Urea Nitrogen 13 Creatinine 0.81 Glucose Level 69 #L Calcium Level 9.1 Total Bilirubin 0.7 Direct Bilirubin 0.00 Indirect Bilirubin 0.7 Aspartate Amino Transf (AST/SGOT) 23 Alanine Aminotransferase (ALT/SGPT) 30 Alkaline Phosphatase 53 Total Protein 6.6 # Albumin 3.7 Globulin 2.90 Albumin/Globulin Ratio 1.27 Medications Medications Current Medications Acetaminophen (Tylenol Tab) 650 mg Q6H PRN PO PAIN LEVEL 1-3 OR FEVER; Start at 01:30 Docusate Sodium (Colace) 100 mg Q12H PRN PO CONSTIPATION; Start 02/10/17 at 01: 30 Bisacodyl 5 mg 5 mg DAILY PRN PO CONSTIPATION; Start 02/10/17 at 01:30 Sodium Chloride (NS) 1,000 ml @ 50 mls/hr Q20H IV Last administered on 21:32; Admin Dose 50 MLS/HR; Start 02/10/17 at 11:00 Enalaprilat (Vasotec Iv) 0.625 mg Q4H PRN IV SBP >160 Last administered on 08:40; Admin Dose 0.625 MG; Start 02/10/17 at 19:00; Stop 02/13/17 at 09:00 Hydralazine HCl (Apresoline) 5 mg Q6H PRN IV SBP >160 Last administered on 01:07; Admin Dose 5 MG; Start 02/10/17 at 19:00 Lorazepam (Ativan) 1 mg DAILY PRN IV AGITATION/ANXIETY Last administered on 02/11 17:50; Admin Dose 1 MG; Start 02/11/17 at 04:00 Famotidine (Pepcid Iv) 20 mg BID IV Last administered on 02/12/17 08:39; Admin Dose 20 MG; Start 02/11/17 at 21:30 Lorazepam 0.5 mg 0.5 mg HS IV ; Start 02/12/17 at 21:00 Potassium Chloride/Dextrose (KCl/D5W) 55 ml @ 50 mls/hr Q1H IV Last administered on 02/12/17 14:44; Admin Dose 50 MLS/HR; Start 02/12/17 at 12:30; Stop 02/12/17 at 15:29 Enalaprilat (Vasotec Iv) 1.25 mg DAILY IV Last administered on 02/12/17t 13:27; Admin Dose 1.25 MG; Start 02/12/17 at 13:00 Fernando Harper DO Feb 12, 2017 14:47
[2017-02-12] MEDS ORDERED: MAGNESIUM SULFATE 2 GM/50 ML 50 ML IVPB ONE (15:00)
[2017-02-12] MEDS: AMLODIPINE 2.5 MG TAB PO SCH ×2 (15:00→23:00)
[2017-02-12] MEDS: SOD CHLORIDE 0.9% 1,000 ML IV SCH (15:27)
[2017-02-12] MEDS: LORAZEPAM 2 MG INJ IV SCH (20:50)
[2017-02-13] VITALS (16 sets, daily range): BP systolic 59–185; BP diastolic 38–102; PULSE 95–118; RESP 14–22
[2017-02-13] MEDS: AMLODIPINE 2.5 MG TAB PO SCH (08:10)
[2017-02-13] MEDS: ENALAPRILAT 1.25 MG INJ IV SCH (08:16)
[2017-02-13] MEDS: FAMOTIDINE 20 MG INJ IV SCH ×2 (08:16→20:01)
[2017-02-13 08:25] LABS: BASOPHIL # 0.1 10^3/ul (0.0-0.1); BASOPHILS % 0.5 % (0.0-2.0); EOSINOPHILS # 0.1 10^3/ul (0.0-0.5); EOSINOPHILS % 1.2 % (0.0-7.0); HEMOGLOBIN 14.3 g/dl (14.0-18.0); LYMPHOCYTES # 1.6 10^3/ul (0.8-2.9); LYMPHOCYTES % 15.7 % (15.0-51.0); MEAN CORPUSCULAR HEMOGLOBIN 33.3 pg (29.0-33.0); MEAN CORPUSCULAR HGB CONC 35.8 g/dl (32.0-37.0); MEAN PLATELET VOLUME 9.6 fl (7.4-10.4); MONOCYTE # 1.1 10^3/ul (0.3-0.9); MONOCYTES % 10.6 % (0.0-11.0); NEUTROPHILS % 71.6 % (39.0-77.0); PLATELET COUNT 244 10^3/UL (140-415); RED CELL DISTRIBUTION WIDTH 12.6 % (11.5-14.5); WHITE BLOOD COUNT 9.9 10^3/ul (4.8-10.8)
[2017-02-13 08:46] LABS: ALBUMIN 3.8 g/dl (3.3-4.9); ALBUMIN/GLOBULIN RATIO 1.35; BILIRUBIN,INDIRECT 1.1 mg/dl (0-1.1); BILIRUBIN,TOTAL 1.1 mg/dl (0.2-1.3); CALCIUM 8.9 mg/dl (8.4-10.2); CREATININE 0.88 mg/dl (0.61-1.24); POTASSIUM 3.6 mmol/L (3.5-5.1); TOTAL PROTEIN 6.6 g/dl (6.1-8.1)
[2017-02-13] MEDS: hydrALAzine 20 MG INJ IV PRN ×2 (09:05→20:01)
--- NOTE | 2017-02-13 10:06 | PN ---
Date/Time of Note Date/Time of Note DATE: 02/13/17 TIME: 10:05 Assessment/Plan VTE Prophylaxis VTE Prophylaxis Intervention: SCD's Lines/Catheters IV Catheter Type (from Nrs): Peripheral IV Urinary Cath still in place: No Assessment/Plan Assessment/Plan Possible syncope Hyponatremia Preserved ejection fraction History of hypertension Mild to moderate carotid artery stenosis -Blood pressure trend elevated,on Norvasc, maintain potassium above 4.0 and magnesium above 2.0. increase bp meds spoke with family no further cardia work up Subjective 24 Hr Interval Summary Free Text/Dictation The patient with no cahnge Exam/Review of Systems Vital Signs Vitals Vital Signs Date Time Temp Pulse Resp B/P Pulse Ox O2 Delivery O2 Flow Rate FiO2 02/13/17 09:51 118 154/72 02/13/17 08:10 98.1 22 93 02/10/17 02:04 Room Air Intake and Output 02/12/17 02/12/17 02/13/17 15:00 23:00 07:00 Intake Total 455 ml 760 ml 600 ml Balance 455 ml 760 ml 600 ml Results Result Diagram: 02/13/17 0727 02/13/17 0730 Results 24 hrs Laboratory Tests Test 02/12/17 11:36 02/12/17 18:51 02/13/17 07:27 02/13/17 07:29 Sodium Level 130 L 128 L White Blood Count 9.9 Red Blood Count 4.30 L Hemoglobin 14.3 Hematocrit 40.0 L Mean Corpuscular Volume 93.0 Mean Corpuscular Hemoglobin 33.3 H Mean Corpuscular Hemoglobin Concent 35.8 Red Cell Distribution Width 12.6 Platelet Count 244 Mean Platelet Volume 9.6 Neutrophils % 71.6 Lymphocytes % 15.7 Monocytes % 10.6 Eosinophils % 1.2 Basophils % 0.5 Nucleated Red Blood Cells % 0.0 Neutrophils # (Manual) 7.1 Lymphocytes # 1.6 Monocytes # 1.1 H Eosinophils # 0.1 Basophils # 0.1 Nucleated Red Blood Cells # 0.0 Magnesium Level 1.9 Test 02/13/17 07:30 Sodium Level 130 L Potassium Level 3.6 Chloride Level 98 Carbon Dioxide Level 22 Anion Gap 14 Blood Urea Nitrogen 12 Creatinine 0.88 Glucose Level 89 Calcium Level 8.9 Total Bilirubin 1.1 Direct Bilirubin 0.00 Indirect Bilirubin 1.1 Aspartate Amino Transf (AST/SGOT) 26 Alanine Aminotransferase (ALT/SGPT) 22 Alkaline Phosphatase 49 Total Protein 6.6 Albumin 3.8 Globulin 2.80 Albumin/Globulin Ratio 1.35 Medications Medications Current Medications Acetaminophen (Tylenol Tab) 650 mg Q6H PRN PO PAIN LEVEL 1-3 OR FEVER; Start at 01:30 Docusate Sodium (Colace) 100 mg Q12H PRN PO CONSTIPATION; Start 02/10/17 at 01: 30 Bisacodyl 5 mg 5 mg DAILY PRN PO CONSTIPATION; Start 02/10/17 at 01:30 Sodium Chloride (NS) 1,000 ml @ 50 mls/hr Q20H IV Last administered on 15:27; Admin Dose 50 MLS/HR; Start 02/10/17 at 11:00 Hydralazine HCl (Apresoline) 5 mg Q6H PRN IV SBP >160 Last administered on 09:05; Admin Dose 5 MG; Start 02/10/17 at 19:00 Lorazepam (Ativan) 1 mg DAILY PRN IV AGITATION/ANXIETY Last administered on 02/11 17:50; Admin Dose 1 MG; Start 02/11/17 at 04:00 Famotidine (Pepcid Iv) 20 mg BID IV Last administered on 02/13/17 08:16; Admin Dose 20 MG; Start 02/11/17 at 21:30 Lorazepam (Ativan) 0.5 mg HS IV Last administered on 02/12/17 20:50; Admin Dose 0.5 MG; Start 02/12/17 at 21:00 Enalaprilat (Vasotec Iv) 1.25 mg DAILY IV Last administered on 02/13/17 08:16; Admin Dose 1.25 MG; Start 02/12/17 at 13:00 Amlodipine Besylate (Norvasc) 2.5 mg BID PO ; Start 02/12/17 at 15:00 SHARMILA AMEZCUA MD Feb 13, 2017 10:06
--- NOTE | 2017-02-13 11:06 | EN ---
Date/Time of Note Date/Time of Note DATE: 02/13/17 TIME: 10:59 Event Note Medicine Medicine Event Note Rapid Response was called on Mr. Carter today at 10:20am. Patient was found to be unresponsive with SBP in the 50s. He was undergoing a swallow evaluation and grabbed his chest after drinking a small sip of water and went unresponsive. BP was rechecked in the left arm and SPB was 110s and tachycardic. Glucose was within normal limits. NSS was changed from bolus back to maintenance. Patient became more responsive and was able to state name but still appeared confused. CT head was just performed on 02/10 and no focal abnormalities were appreciated so repeat was not necessary. Portable CXR ordered to rule out possible aspiration. Patient saturating 96% on RA. Also questionable if patient had a nonfocal seizure, EEG ordered to assess. Patients family was at bedside and all questions answered and concerns addressed. ALETA LOPEZ MD Feb 13, 2017 11:06
[2017-02-13] MEDS ORDERED: SOD CHLORIDE 0.9% 1,000 ML IV ONE (11:30)
[2017-02-13] MEDS ORDERED: LORAZEPAM 2 MG INJ IV PRN ×2 (12:00)
--- NOTE | 2017-02-13 12:06 | PN ---
Date/Time of Note Date/Time of Note DATE: 02/13/17 TIME: 11:48 Assessment/Plan VTE Prophylaxis VTE Prophylaxis Intervention: heparin Lines/Catheters [facility] IV Urinary Cath still in place: No Assessment/Plan Assessment/Plan 1. Hyponatremia secondary to Hctz - Nephrology on board and recommendations appreciated - Will continue monitoring Na levels and follow nephrology recommendations for fluid management - Na stable at 130 2. ?Seizure activity - patient has been having episodes per family were he goes unresponsive, stiffens, experiences tremors of UE b/l. It takes minutes but he returns to baseline - Neurology already on board - EEG ordered - Ativan PRN for seizure activity 3. Confusion - ?postictal vs hospital delirium - Will check EEG - Instructed patients family on importance of orienting patient to family members and keeping room lit up during day and dark at night - When able to swallow pills may place on Seroquel and taper 4. Hypokalemia - 3.6. replaced - will continue monitoring 5. Dysphagia - seemed to do well with pureed foods - ?aspiration during episode of unresponsiveness. CXR performed 6. Anxiety - Klonipin 0.5mg qHS 7. ? Cardiac arrest - Cardiology on board and recommendations appreciated - troponins negative - ECHO and carotid US stable - adjusting medications for BP control but no need for further interventions 8. Hypertension - BP has been elevated and on Vasotec IV daily - Norvasc BID if patient able to swallow medications - Will continue monitoring and adjust as needed 9. ?h/o Schizophrenia - Per family patient was started on [place] for paranoia but did not continue after discharge. only took 3 days while inpatient Subjective 24 Hr Interval Summary Free Text/Dictation Patient seen and examined with family at bedside. Patient had an [employer] earlier this am (refer to event note) while undergoing swallow evaluation. Patient went unresponsive and BP was in the 50s/ but when opposite arm was checked was 110s/. Patient may have had a seizure but family denies any past history of seizure activity. Family did admit that he was placed on multiple psych medications after his last discharge but did not continue when returned home. He displayed paranoid tendencies. Patient is able to recognize his daughter and oriented to self. Patient still appears confused but smiling and interactive. Exam/Review of Systems Vital Signs Vitals Vital Signs Date Time Temp Pulse Resp B/P Pulse Ox O2 Delivery O2 Flow Rate FiO2 02/13/17 11:36 98.1 111 20 131/66 95 02/13/17 11:27 Room Air 02/13/17 10:28 2.0 Intake and Output 02/12/17 02/12/17 02/13/17 15:00 23:00 07:00 Intake Total 455 ml 760 ml 600 ml Balance 455 ml 760 ml 600 ml Exam General: Confused but NAD, awake and alert. Not following commands Eyes: PERRL CVS: regular rate and rhythm. systolic murmur Lungs: CTA b/l. no wheezes or rhonchi Abd: soft, NT, ND. no rebound or guarding Ext: resting tremor RUE b/l, moving all extremities Results Result Diagram: 02/13/17 0727 02/13/17 0730 Results 24 hrs Laboratory Tests Test 02/12/17 18:51 02/13/17 07:27 02/13/17 07:29 02/13/17 07:30 Sodium Level 128 L 130 L White Blood Count 9.9 Red Blood Count 4.30 L Hemoglobin 14.3 Hematocrit 40.0 L Mean Corpuscular Volume 93.0 Mean Corpuscular Hemoglobin 33.3 H Mean Corpuscular Hemoglobin Concent 35.8 Red Cell Distribution Width 12.6 Platelet Count 244 Mean Platelet Volume 9.6 Neutrophils % 71.6 Lymphocytes % 15.7 Monocytes % 10.6 Eosinophils % 1.2 Basophils % 0.5 Nucleated Red Blood Cells % 0.0 Neutrophils # (Manual) 7.1 Lymphocytes # 1.6 Monocytes # 1.1 H Eosinophils # 0.1 Basophils # 0.1 Nucleated Red Blood Cells # 0.0 Magnesium Level 1.9 Potassium Level 3.6 Chloride Level 98 Carbon Dioxide Level 22 Anion Gap 14 Blood Urea Nitrogen 12 Creatinine 0.88 Glucose Level 89 Calcium Level 8.9 Total Bilirubin 1.1 Direct Bilirubin 0.00 Indirect Bilirubin 1.1 Aspartate Amino Transf (AST/SGOT) 26 Alanine Aminotransferase (ALT/SGPT) 22 Alkaline Phosphatase 49 Total Protein 6.6 Albumin 3.8 Globulin 2.80 Albumin/Globulin Ratio 1.35 Test 02/13/17 10:23 Bedside Glucose 98 Medications Medications Current Medications Acetaminophen (Tylenol Tab) 650 mg Q6H PRN PO PAIN LEVEL 1-3 OR FEVER; Start at 01:30 Docusate Sodium (Colace) 100 mg Q12H PRN PO CONSTIPATION; Start 02/10/17 at 01: 30 Bisacodyl 5 mg 5 mg DAILY PRN PO CONSTIPATION; Start 02/10/17 at 01:30 Sodium Chloride (NS) 1,000 ml @ 50 mls/hr Q20H IV Last administered on 15:27; Admin Dose 50 MLS/HR; Start 02/10/17 at 11:00 Hydralazine HCl (Apresoline) 5 mg Q6H PRN IV SBP >160 Last administered on 09:05; Admin Dose 5 MG; Start 02/10/17 at 19:00 Lorazepam (Ativan) 1 mg DAILY PRN IV AGITATION/ANXIETY Last administered on 02/11 17:50; Admin Dose 1 MG; Start 02/11/17 at 04:00 Famotidine (Pepcid Iv) 20 mg BID IV Last administered on 02/13/17 08:16; Admin Dose 20 MG; Start 02/11/17 at 21:30 Lorazepam (Ativan) 0.5 mg HS IV Last administered on 02/12/17 20:50; Admin Dose 0.5 MG; Start 02/12/17 at 21:00 Enalaprilat (Vasotec Iv) 1.25 mg DAILY IV Last administered on 02/13/17 08:16; Admin Dose 1.25 MG; Start 02/12/17 at 13:00 Amlodipine Besylate 5 mg 5 mg AM PO ; Start 02/14/17 at 09:00 Sodium Chloride (NS) 1,000 ml @ 1,000 mls/hr Q1H ONCE IV Last administered on 02/13/17 11:20; Admin Dose 1,000 MLS/HR; Start 02/13/17 at 11:30; Stop 02/13/17 at 12:29 ALETA LOPEZ MD Feb 13, 2017 12:05
--- NOTE | 2017-02-13 13:38 | CONS ---
Date/Time of Note Date/Time of Note DATE: 02/13/17 TIME: 13:37 Assessment/Plan Assessment/Plan Chief Complaint/Hosp Course 1. CKD mild 2. Electrolyte imbalance: HYPONATREMIA 3. SIADH 4. S/P ARREST 5. HTN, controlled 6. Dysphagia Problems: Additional Assessment/Plan 1. fluid restrictions 2. keep NPO for aspiration precaution Consultation Date/Type/Reason Admit Date/Time Feb 09, 2017 at 23:31 Initial Consult Date 02/11/2017 Type of Consultation: nephrology Reason for Consultation Dr Perdue Exam/Review of Systems Vital Signs Vitals Vital Signs Date Time Temp Pulse Resp B/P Pulse Ox O2 Delivery O2 Flow Rate FiO2 02/13/17 12:03 107 02/13/17 11:36 98.1 20 131/66 95 02/13/17 11:27 Room Air 02/13/17 10:28 2.0 Intake and Output 02/12/17 02/12/17 02/13/17 15:00 23:00 07:00 Intake Total 455 ml 760 ml 600 ml Balance 455 ml 760 ml 600 ml Exam Constitutional: other (confused) Respiratory: diminished breath sounds Cardiovascular: regular rate and rhythm Results Result Diagram: 02/13/17 0727 02/13/17 0730 Results 24 hrs Laboratory Tests Test 02/12/17 18:51 02/13/17 07:27 02/13/17 07:29 02/13/17 07:30 Sodium Level 128 L 130 L White Blood Count 9.9 Red Blood Count 4.30 L Hemoglobin 14.3 Hematocrit 40.0 L Mean Corpuscular Volume 93.0 Mean Corpuscular Hemoglobin 33.3 H Mean Corpuscular Hemoglobin Concent 35.8 Red Cell Distribution Width 12.6 Platelet Count 244 Mean Platelet Volume 9.6 Neutrophils % 71.6 Lymphocytes % 15.7 Monocytes % 10.6 Eosinophils % 1.2 Basophils % 0.5 Nucleated Red Blood Cells % 0.0 Neutrophils # (Manual) 7.1 Lymphocytes # 1.6 Monocytes # 1.1 H Eosinophils # 0.1 Basophils # 0.1 Nucleated Red Blood Cells # 0.0 Magnesium Level 1.9 Potassium Level 3.6 Chloride Level 98 Carbon Dioxide Level 22 Anion Gap 14 Blood Urea Nitrogen 12 Creatinine 0.88 Glucose Level 89 Calcium Level 8.9 Total Bilirubin 1.1 Direct Bilirubin 0.00 Indirect Bilirubin 1.1 Aspartate Amino Transf (AST/SGOT) 26 Alanine Aminotransferase (ALT/SGPT) 22 Alkaline Phosphatase 49 Total Protein 6.6 Albumin 3.8 Globulin 2.80 Albumin/Globulin Ratio 1.35 Test 02/13/17 10:23 Bedside Glucose 98 Medications Medications Current Medications Acetaminophen (Tylenol Tab) 650 mg Q6H PRN PO PAIN LEVEL 1-3 OR FEVER; Start at 01:30 Docusate Sodium (Colace) 100 mg Q12H PRN PO CONSTIPATION; Start 02/10/17 at 01: 30 Bisacodyl 5 mg 5 mg DAILY PRN PO CONSTIPATION; Start 02/10/17 at 01:30 Sodium Chloride (NS) 1,000 ml @ 50 mls/hr Q20H IV Last administered on 15:27; Admin Dose 50 MLS/HR; Start 02/10/17 at 11:00 Hydralazine HCl (Apresoline) 5 mg Q6H PRN IV SBP >160 Last administered on 09:05; Admin Dose 5 MG; Start 02/10/17 at 19:00 Famotidine (Pepcid Iv) 20 mg BID IV Last administered on 02/13/17 08:16; Admin Dose 20 MG; Start 02/11/17 at 21:30 Lorazepam (Ativan) 0.5 mg HS IV Last administered on 02/12/17 20:50; Admin Dose 0.5 MG; Start 02/12/17 at 21:00 Enalaprilat (Vasotec Iv) 1.25 mg DAILY IV Last administered on 02/13/17 08:16; Admin Dose 1.25 MG; Start 02/12/17 at 13:00 Amlodipine Besylate (Norvasc) 5 mg AM PO ; Start 02/14/17 at 09:00 Lorazepam (Ativan) 1 mg Q10MIN PRN IV seizure activity; Start 02/13/17 at 12:00 BHAVANA ROACH Feb 13, 2017 13:38
--- NOTE | 2017-02-13 16:26 | RADRPT ---
PROCEDURE: XR Chest. CLINICAL INDICATION: Aspiration TECHNIQUE: A single AP view of the chest was obtained. COMPARISON: None. FINDINGS: There is mild right basilar atelectasis. No focal airspace opacification, pleural effusion or pneum othorax is seen. The cardiomediastinal silhouette is within normal limits for size. Calcifications are seen within the aortic arch. The osseous structures demonstrate healed left mid clavicle fractu re. IMPRESSION: 1. No radiographic evidence of acute cardiopulmonary disease. No significant interval change. 2. Mild right basilar atelectasis. 3. Aortic atherosclerosis. RPTAT: HH .Екатерина Reyes MD, MD Date Time Electronically viewed and signed by .Екатерина Reyes MD, on 02/13/2017 16:25 .G/
[2017-02-13] MEDS: SOD CHLORIDE 0.9% 1,000 ML IV SCH (18:05)
[2017-02-13] MEDS: LORAZEPAM 2 MG INJ IV SCH (20:01)
[2017-02-14] VITALS (12 sets, daily range): BP systolic 97–169; BP diastolic 54–79; PULSE 72–98; RESP 15–20
[2017-02-14] MEDS ORDERED: LORAZEPAM 2 MG INJ IV ONE (03:30)
[2017-02-14] MEDS: SOD CHLORIDE 0.9% 1,000 ML IV SCH ×2 (03:38→17:17)
[2017-02-14] MEDS: FAMOTIDINE 20 MG INJ IV SCH ×2 (08:30→20:17)
[2017-02-14] MEDS: ENALAPRILAT 1.25 MG INJ IV SCH (08:30)
[2017-02-14 08:41] LABS: ALBUMIN 3.8 g/dl (3.3-4.9); CALCIUM 8.9 mg/dl (8.4-10.2); CREATININE 0.85 mg/dl (0.61-1.24); MAGNESIUM 1.9 mg/dl (1.7-2.5); PHOSPHORUS 3.9 mg/dl (2.5-4.9); POTASSIUM 3.5 mmol/L (3.5-5.1)
[2017-02-14 08:41] LABS: BASOPHILS % 0.5 % (0.0-2.0); EOSINOPHILS # 0.3 10^3/ul (0.0-0.5); EOSINOPHILS % 3.2 % (0.0-7.0); HEMATOCRIT 38.2 % (42.0-52.0); HEMOGLOBIN 14.1 g/dl (14.0-18.0); LYMPHOCYTES # 1.2 10^3/ul (0.8-2.9); MEAN CORPUSCULAR HEMOGLOBIN 34.7 pg (29.0-33.0); MEAN CORPUSCULAR HGB CONC 36.9 g/dl (32.0-37.0); MEAN CORPUSCULAR VOLUME 94.1 fl (82.0-101.0); MEAN PLATELET VOLUME 9.4 fl (7.4-10.4); MONOCYTE # 0.8 10^3/ul (0.3-0.9); MONOCYTES % 10.6 % (0.0-11.0); NEUTROPHILS % 69.3 % (39.0-77.0); PLATELET COUNT 236 10^3/UL (140-415); RED BLOOD COUNT 4.06 10^6/ul (4.70-6.10); RED CELL DISTRIBUTION WIDTH 12.5 % (11.5-14.5); WHITE BLOOD COUNT 7.7 10^3/ul (4.8-10.8)
[2017-02-14 08:42] LABS: CALCIUM 9.1 mg/dl (8.4-10.2); CREATININE 0.82 mg/dl (0.61-1.24); POTASSIUM 3.8 mmol/L (3.5-5.1)
[2017-02-14] MEDS ORDERED: AMLODIPINE 5 MG TAB PO SCH (09:00)
[2017-02-14] MEDS ORDERED: ACETAMINOPHEN 650 MG SUPP PR PRN (14:00)
--- NOTE | 2017-02-14 14:39 | PN ---
Date/Time of Note Date/Time of Note DATE: 02/14/17 TIME: 14:39 Assessment/Plan VTE Prophylaxis VTE Prophylaxis Intervention: heparin Lines/Catheters IV Catheter Type (from Nrs): Saline Lock Urinary Cath still in place: No Assessment/Plan Assessment/Plan 1. Hyponatremia secondary to Hctz- resolving - Nephrology on board and recommendations appreciated. ' - Na stable at 135 2. Seizures - EEG shows activity suspicious for seizure activity. Will start on Keppra 500mg IV and await further recommendations from Neurology - Neurology already on board - Ativan PRN for seizure activity 3. Confusion- ?postictal - Improving - Instructed patients family on importance of orienting patient to family members and keeping room lit up during day and dark at night to avoid hospital delirium 4. Hypokalemia- resolved - 3.8. - will continue monitoring 5. Dysphagia - Awaiting speech eval 6. Anxiety - Klonipin 0.5mg qHS 7. ? Cardiac arrest - Cardiology on board and recommendations appreciated - troponins negative - ECHO and carotid US stable - adjusting medications for BP control but no need for further interventions 8. Hypertension - BP has been elevated and on Vasotec IV daily - Norvasc BID if patient able to swallow medications - Will continue monitoring and adjust as needed Subjective 24 Hr Interval Summary Free Text/Dictation patient more awake with family at bedside. Denies any new complaints and no acute overnight events. Patient now oriented to location which he has not been able to name in the past. Still experiencing UE tremors at rest. Exam/Review of Systems Vital Signs Vitals Vital Signs Date Time Temp Pulse Resp B/P Pulse Ox O2 Delivery O2 Flow Rate FiO2 02/14/17 14:06 99.2 02/14/17 12:21 96 18 97/54 96 02/13/17 11:27 Room Air 02/13/17 10:28 2.0 Intake and Output 02/13/17 02/13/17 02/14/17 15:00 23:00 07:00 Intake Total 190 ml 400 ml 150 ml Output Total 800 ml Balance 190 ml 400 ml -650 ml Exam General: NAD, awake and alert. Oriented to self and place Eyes: PERRL CVS: regular rate and rhythm. systolic murmur Lungs: CTA b/l. no wheezes or rhonchi Abd: soft, NT, ND. no rebound or guarding Ext: resting tremor RUE b/l, moving all extremities Results Result Diagram: 02/14/17 0758 02/14/17 0758 Results 24 hrs Laboratory Tests Test 02/14/17 07:57 02/14/17 07:58 Sodium Level 135 135 Potassium Level 3.5 3.8 Chloride Level 102 102 Carbon Dioxide Level 23 24 Anion Gap 14 13 Blood Urea Nitrogen 11 11 Creatinine 0.85 0.82 Glucose Level 80 78 Calcium Level 8.9 9.1 Phosphorus Level 3.9 Magnesium Level 1.9 Albumin 3.8 White Blood Count 7.7 # Red Blood Count 4.06 L Hemoglobin 14.1 Hematocrit 38.2 L Mean Corpuscular Volume 94.1 Mean Corpuscular Hemoglobin 34.7 H Mean Corpuscular Hemoglobin Concent 36.9 Red Cell Distribution Width 12.5 Platelet Count 236 Mean Platelet Volume 9.4 Neutrophils % 69.3 Lymphocytes % 16.0 Monocytes % 10.6 Eosinophils % 3.2 Basophils % 0.5 Nucleated Red Blood Cells % 0.0 Neutrophils # (Manual) 5.4 Lymphocytes # 1.2 Monocytes # 0.8 Eosinophils # 0.3 Basophils # 0.0 Nucleated Red Blood Cells # 0.0 Medications Medications Current Medications Acetaminophen (Tylenol Tab) 650 mg Q6H PRN PO PAIN LEVEL 1-3 OR FEVER; Start at 01:30 Docusate Sodium (Colace) 100 mg Q12H PRN PO CONSTIPATION; Start 02/10/17 at 01: 30 Bisacodyl 5 mg 5 mg DAILY PRN PO CONSTIPATION; Start 02/10/17 at 01:30 Sodium Chloride (NS) 1,000 ml @ 50 mls/hr Q20H IV Last administered on 03:38; Admin Dose 50 MLS/HR; Start 02/10/17 at 11:00 Hydralazine HCl (Apresoline) 5 mg Q6H PRN IV SBP >160 Last administered on 20:01; Admin Dose 5 MG; Start 02/10/17 at 19:00 Famotidine (Pepcid Iv) 20 mg BID IV Last administered on 02/14/17 08:30; Admin Dose 20 MG; Start 02/11/17 at 21:30 Lorazepam (Ativan) 0.5 mg HS IV Last administered on 02/13/17 20:01; Admin Dose 0.5 MG; Start 02/12/17 at 21:00 Enalaprilat (Vasotec Iv) 1.25 mg DAILY IV Last administered on 02/14/17 08:30 ; Admin Dose 1.25 MG; Start 02/12/17 at 13:00 Amlodipine Besylate (Norvasc) 5 mg AM PO ; Start 02/14/17 at 09:00 Lorazepam (Ativan) 1 mg Q10MIN PRN IV seizure activity; Start 02/13/17 at 12:00 Acetaminophen (Tylenol Supp) 650 mg Q6H PRN [place] FEVER; Start 02/14/17 at 14:00 ALETA LOPEZ MD Feb 14, 2017 14:39
--- NOTE | 2017-02-14 17:01 | PRO ---
DATE OF PROCEDURE: 02/13/2017 HISTORY: This patient was admitted with a respiratory arrest requiring CPR and was found to have possible seizure activity. MEDICATIONS: None. DESCRIPTION OF PROCEDURE: Utilizing a 16-channel EEG machine, cap scalp electrodes were applied in accordance with the International 10-20 system. [id number] and [id number] montages were displayed. Electrical impedances were measured and reported. Description: During a resting state, posterior dominant rhythm of about 8-9 hertz was seen bihemispherically. Photic stimulation had a good response. Hyperventilation was not performed. Blink artifact as well as muscle artifact were noted at times during the tracing. Bitemporal sharps were noted at times during the tracing. IMPRESSION: This is an abnormal EEG because of bitemporal sharp, consistent with possible seizure activity. Please correlate these findings with the patient's clinical picture. Dictated By: Inez Danielle MD /diane/anabela /Document#: [id number]
--- NOTE | 2017-02-14 18:15 | CONS ---
Date/Time of Note Date/Time of Note DATE: 02/14/17 TIME: 18:10 Assessment/Plan Assessment/Plan Chief Complaint/Hosp Course 1. CKD mild 2. Electrolyte imbalance: HYPONATREMIA> improved to 135 3. SIADH 4 S/P ARREST 5. HTN, controlled 6.Dysphagia s/p swallow eval Problems: Additional Assessment/Plan 1. fluid restrictions 2. keep NPO for aspiration precaution Problems: Consultation Date/Type/Reason Admit Date/Time Feb 09, 2017 at 23:31 Initial Consult Date Type of Consultation: nephrology 24 HR Interval Summary Free Text/Dictation Pt sleepy Exam/Review of Systems Vital Signs Vitals Vital Signs Date Time Temp Pulse Resp B/P Pulse Ox O2 Delivery O2 Flow Rate FiO2 02/14/17 16:14 98.7 86 20 116/57 95 02/13/17 11:27 Room Air 02/13/17 10:28 2.0 Intake and Output 02/13/17 02/13/17 02/14/17 15:00 23:00 07:00 Intake Total 190 ml 400 ml 150 ml Output Total 800 ml Balance 190 ml 400 ml -650 ml Exam Constitutional: Lethargic s/p ativan Respiratory: diminished breath sounds Cardiovascular: regular rate and rhythm Results Result Diagram: 02/14/17 0758 02/14/17 0758 Results 24 hrs Laboratory Tests Test 02/14/17 07:57 02/14/17 07:58 Sodium Level 135 135 Potassium Level 3.5 3.8 Chloride Level 102 102 Carbon Dioxide Level 23 24 Anion Gap 14 13 Blood Urea Nitrogen 11 11 Creatinine 0.85 0.82 Glucose Level 80 78 Calcium Level 8.9 9.1 Phosphorus Level 3.9 Magnesium Level 1.9 Albumin 3.8 White Blood Count 7.7 # Red Blood Count 4.06 L Hemoglobin 14.1 Hematocrit 38.2 L Mean Corpuscular Volume 94.1 Mean Corpuscular Hemoglobin 34.7 H Mean Corpuscular Hemoglobin Concent 36.9 Red Cell Distribution Width 12.5 Platelet Count 236 Mean Platelet Volume 9.4 Neutrophils % 69.3 Lymphocytes % 16.0 Monocytes % 10.6 Eosinophils % 3.2 Basophils % 0.5 Nucleated Red Blood Cells % 0.0 Neutrophils # (Manual) 5.4 Lymphocytes # 1.2 Monocytes # 0.8 Eosinophils # 0.3 Basophils # 0.0 Nucleated Red Blood Cells # 0.0 Medications Medications Current Medications Acetaminophen (Tylenol Tab) 650 mg Q6H PRN PO PAIN LEVEL 1-3 OR FEVER; Start at 01:30 Docusate Sodium (Colace) 100 mg Q12H PRN PO CONSTIPATION; Start 02/10/17 at 01: 30 Bisacodyl 5 mg 5 mg DAILY PRN PO CONSTIPATION; Start 02/10/17 at 01:30 Sodium Chloride (NS) 1,000 ml @ 50 mls/hr Q20H IV Last administered on 17:17; Admin Dose 50 MLS/HR; Start 02/10/17 at 11:00 Hydralazine HCl (Apresoline) 5 mg Q6H PRN IV SBP >160 Last administered on 20:01; Admin Dose 5 MG; Start 02/10/17 at 19:00 Famotidine (Pepcid Iv) 20 mg BID IV Last administered on 02/14/17 08:30; Admin Dose 20 MG; Start 02/11/17 at 21:30 Lorazepam (Ativan) 0.5 mg HS IV Last administered on 02/13/17 20:01; Admin Dose 0.5 MG; Start 02/12/17 at 21:00 Enalaprilat (Vasotec Iv) 1.25 mg DAILY IV Last administered on 02/14/17 08:30 ; Admin Dose 1.25 MG; Start 02/12/17 at 13:00 Amlodipine Besylate (Norvasc) 5 mg AM PO ; Start 02/14/17 at 09:00 Lorazepam (Ativan) 1 mg Q10MIN PRN IV seizure activity; Start 02/13/17 at 12:00 Acetaminophen (Tylenol Supp) 650 mg Q6H PRN [place] FEVER; Start 02/14/17 at 14:00 ANSLEY NOWAK MD Feb 14, 2017 18:15
[2017-02-14] MEDS: LORAZEPAM 2 MG INJ IV SCH (20:17)
[2017-02-14] MEDS: LEVETIRACETAM 500 MG (PMX) 100 ML IVPB SCH (20:18)
[2017-02-15] VITALS (10 sets, daily range): BP systolic 91–117; BP diastolic 41–56; PULSE 60–70; RESP 15–20
[2017-02-15 07:49] LABS: BASOPHIL # 0.1 10^3/ul (0.0-0.1); BASOPHILS % 0.8 % (0.0-2.0); EOSINOPHILS # 0.2 10^3/ul (0.0-0.5); EOSINOPHILS % 3.6 % (0.0-7.0); HEMATOCRIT 36.4 % (42.0-52.0); HEMOGLOBIN 12.8 g/dl (14.0-18.0); LYMPHOCYTES # 1.6 10^3/ul (0.8-2.9); MEAN CORPUSCULAR HEMOGLOBIN 34.1 pg (29.0-33.0); MEAN CORPUSCULAR HGB CONC 35.2 g/dl (32.0-37.0); MEAN CORPUSCULAR VOLUME 97.1 fl (82.0-101.0); MEAN PLATELET VOLUME 10.1 fl (7.4-10.4); MONOCYTE # 0.7 10^3/ul (0.3-0.9); MONOCYTES % 10.3 % (0.0-11.0); NEUTROPHILS % 60.7 % (39.0-77.0); PLATELET COUNT 209 10^3/UL (140-415); RED BLOOD COUNT 3.75 10^6/ul (4.70-6.10); RED CELL DISTRIBUTION WIDTH 12.7 % (11.5-14.5); WHITE BLOOD COUNT 6.6 10^3/ul (4.8-10.8)
[2017-02-15 08:17] LABS: CALCIUM 8.7 mg/dl (8.4-10.2); CREATININE 0.94 mg/dl (0.61-1.24); MAGNESIUM 1.8 mg/dl (1.7-2.5); POTASSIUM 3.5 mmol/L (3.5-5.1)
--- NOTE | 2017-02-15 09:41 | PN ---
Date/Time of Note Date/Time of Note DATE: 02/15/17 TIME: 09:31 Assessment/Plan VTE Prophylaxis VTE Prophylaxis Intervention: SCD's Lines/Catheters IV Catheter Type (from Nrs): Saline Lock Urinary Cath still in place: No Assessment/Plan Assessment/Plan 1. Seizure disorder due to hyponatremia, no recurrentce, on keppra per neurology 2. Hyponatremia secondary to Hctz and excessive water intake, improved, talked with the daughter today and gave instructions 3. Hypokalemia- resolved 4. Anxiety, on Klonipin 0.5mg qHS 5. Hypertension, decrease norvasc, stop iv vasotec 6. PT and consider home tomorrow Subjective 24 Hr Interval Summary Free Text/Dictation doing well today Exam/Review of Systems Vital Signs Vitals Vital Signs Date Time Temp Pulse Resp B/P Pulse Ox O2 Delivery O2 Flow Rate FiO2 02/15/17 08:17 97.9 62 18 91/51 94 02/13/17 11:27 Room Air 02/13/17 10:28 2.0 Intake and Output 02/14/17 02/14/17 02/15/17 15:00 23:00 07:00 Intake Total 700 ml 800 ml Output Total 800 ml Balance -100 ml 800 ml Exam Constitutional: alert, oriented Psych: nl mood/affect, no complaints Head: atraumatic, normocephalic Eyes: EOMI, PERRL, nl conjunctiva, nl lids ENMT: nl external ears & nose, nl lips & teeth, nl nasal mucosa & septum Neck: non-tender, supple Respiratory: clear to auscultation, normal air movement, No congested cough, No crackles/rales, No diminished breath sounds, No intercostal retraction, No labored breathing, No other, No respirations, No tactile fremitus, No wheezing Cardiovascular: nl pulses, regular rate and rhythm, No S3, No S4, No bruits, No diastolic murmur, No edema, No gallop, No irregular rhythm, No jugular venous distention (JVD), No murmurs/extra sounds, No other, No rub, No systolic murmur Gastrointestinal: nl liver, spleen, non-tender, soft, No ascites, No bowel sounds, No distended, No firm, No hepatomegaly, No mass , No other, No rebound or guarding, No splenomegaly, No surgical scars, No tender Musculoskeletal: nl extremities to inspection Extremities: normal pulses, No calf tenderness, No clubbing, No cyanosis, No edema, No other, No palpable cord, No pitting pedal edema, No tenderness Neurological: HEAD BAGGAGE PORTER II-XII intact, nl mental status, nl speech, nl strength Skin: nl turgor Lymph: nl lymph nodes Results Result Diagram: 02/15/17 0627 02/15/17 0627 Results 24 hrs Laboratory Tests Test 02/15/17 06:27 White Blood Count 6.6 Red Blood Count 3.75 L Hemoglobin 12.8 L Hematocrit 36.4 L Mean Corpuscular Volume 97.1 Mean Corpuscular Hemoglobin 34.1 H Mean Corpuscular Hemoglobin Concent 35.2 Red Cell Distribution Width 12.7 Platelet Count 209 Mean Platelet Volume 10.1 Neutrophils % 60.7 Lymphocytes % 24.0 Monocytes % 10.3 Eosinophils % 3.6 Basophils % 0.8 Nucleated Red Blood Cells % 0.0 Neutrophils # (Manual) 4.0 Lymphocytes # 1.6 Monocytes # 0.7 Eosinophils # 0.2 Basophils # 0.1 Nucleated Red Blood Cells # 0.0 Sodium Level 137 Potassium Level 3.5 Chloride Level 105 Carbon Dioxide Level 22 Anion Gap 14 Blood Urea Nitrogen 19 Creatinine 0.94 Glucose Level 53 #L Calcium Level 8.7 Phosphorus Level 4.0 Magnesium Level 1.8 Albumin 3.0 L Medications Medications Current Medications Acetaminophen (Tylenol Tab) 650 mg Q6H PRN PO PAIN LEVEL 1-3 OR FEVER; Start at 01:30 Docusate Sodium (Colace) 100 mg Q12H PRN PO CONSTIPATION; Start 02/10/17 at 01: 30 Bisacodyl 5 mg 5 mg DAILY PRN PO CONSTIPATION; Start 02/10/17 at 01:30 Sodium Chloride (NS) 1,000 ml @ 50 mls/hr Q20H IV Last administered on 17:17; Admin Dose 50 MLS/HR; Start 02/10/17 at 11:00 Hydralazine HCl (Apresoline) 5 mg Q6H PRN IV SBP >160 Last administered on 20:01; Admin Dose 5 MG; Start 02/10/17 at 19:00 Famotidine (Pepcid Iv) 20 mg BID IV Last administered on 02/14/17 20:17; Admin Dose 20 MG; Start 02/11/17 at 21:30 Lorazepam (Ativan) 0.5 mg HS IV Last administered on 02/14/17 20:17; Admin Dose 0.5 MG; Start 02/12/17 at 21:00 Enalaprilat (Vasotec Iv) 1.25 mg DAILY IV Last administered on 02/14/17 08:30 ; Admin Dose 1.25 MG; Start 02/12/17 at 13:00 Amlodipine Besylate (Norvasc) 5 mg AM PO ; Start 02/14/17 at 09:00 Lorazepam (Ativan) 1 mg Q10MIN PRN IV seizure activity; Start 02/13/17 at 12:00 Acetaminophen 650 mg 650 mg Q6H PRN [place] FEVER; Start 02/14/17 at 14:00 Levetiracetam (Keppra 500 Mg/ 100ml (Pmx)) 100 ml @ 400 mls/hr Q12 IVPB Last administered on 02/14/17 20:18; Admin Dose 400 MLS/HR; Start 02/14/17 at 21:00 REFUGIO DE SOUZA MD Feb 15, 2017 09:41
[2017-02-15] MEDS: FAMOTIDINE 20 MG INJ IV SCH (09:51)
[2017-02-15] MEDS: LEVETIRACETAM 500 MG (PMX) 100 ML IVPB SCH ×2 (09:51→20:46)
[2017-02-15] MEDS: AMLODIPINE 2.5 MG TAB PO SCH (10:00)
[2017-02-15] MEDS: SOD CHLORIDE 0.9% 1,000 ML IV SCH (12:10)
--- NOTE | 2017-02-15 16:19 | CONS ---
Date/Time of Note Date/Time of Note DATE: 02/15/17 TIME: 16:16 Assessment/Plan Assessment/Plan Additional Assessment/Plan Possible syncope Hyponatremia Preserved ejection fraction History of hypertension Mild to moderate carotid artery stenosis Possible seizure activity -Blood pressure trend improved and Norvasc dose has been decreased. Would continue to hold any diuretics. Consultation Date/Type/Reason Admit Date/Time Feb 09, 2017 at 23:31 Type of Consultation: cv 24 HR Interval Summary Free Text/Dictation Doing much better as per daughter at bedside. Able to eat today. Exam/Review of Systems Vital Signs Vitals Vital Signs Date Time Temp Pulse Resp B/P Pulse Ox O2 Delivery O2 Flow Rate FiO2 02/15/17 16:04 65 02/15/17 11:43 98.0 18 102/51 96 02/13/17 11:27 Room Air 02/13/17 10:28 2.0 Intake and Output 02/14/17 02/14/17 02/15/17 15:00 23:00 07:00 Intake Total 700 ml 800 ml Output Total 800 ml Balance -100 ml 800 ml Exam Sleeping, no apparent distress Head: normocephalic Respiratory: other (Coarse breath sounds bilaterally, no wheezing) Cardiovascular: other (S1-S2 heard), regular rate and rhythm Gastrointestinal: bowel sounds, non-tender, soft Extremities: edema (Trace) Results Result Diagram: 02/15/17 0627 02/15/17 0627 Results 24 hrs Laboratory Tests Test 02/15/17 06:27 02/15/17 11:49 White Blood Count 6.6 Red Blood Count 3.75 L Hemoglobin 12.8 L Hematocrit 36.4 L Mean Corpuscular Volume 97.1 Mean Corpuscular Hemoglobin 34.1 H Mean Corpuscular Hemoglobin Concent 35.2 Red Cell Distribution Width 12.7 Platelet Count 209 Mean Platelet Volume 10.1 Neutrophils % 60.7 Lymphocytes % 24.0 Monocytes % 10.3 Eosinophils % 3.6 Basophils % 0.8 Nucleated Red Blood Cells % 0.0 Neutrophils # (Manual) 4.0 Lymphocytes # 1.6 Monocytes # 0.7 Eosinophils # 0.2 Basophils # 0.1 Nucleated Red Blood Cells # 0.0 Sodium Level 137 Potassium Level 3.5 Chloride Level 105 Carbon Dioxide Level 22 Anion Gap 14 Blood Urea Nitrogen 19 Creatinine 0.94 Glucose Level 53 #L Calcium Level 8.7 Phosphorus Level 4.0 Magnesium Level 1.8 Albumin 3.0 L Bedside Glucose 136 Medications Medications Current Medications Acetaminophen (Tylenol Tab) 650 mg Q6H PRN PO PAIN LEVEL 1-3 OR FEVER; Start at 01:30 Docusate Sodium (Colace) 100 mg Q12H PRN PO CONSTIPATION; Start 02/10/17 at 01: 30 Bisacodyl 5 mg 5 mg DAILY PRN PO CONSTIPATION; Start 02/10/17 at 01:30 Sodium Chloride (NS) 1,000 ml @ 50 mls/hr Q20H IV Last administered on 12:10; Admin Dose 50 MLS/HR; Start 02/10/17 at 11:00 Hydralazine HCl (Apresoline) 5 mg Q6H PRN IV SBP >160 Last administered on 20:01; Admin Dose 5 MG; Start 02/10/17 at 19:00 Lorazepam (Ativan) 0.5 mg HS IV Last administered on 02/14/17 20:17; Admin Dose 0.5 MG; Start 02/12/17 at 21:00 Lorazepam (Ativan) 1 mg Q10MIN PRN IV seizure activity; Start 02/13/17 at 12:00 Acetaminophen 650 mg 650 mg Q6H PRN [place] FEVER; Start 02/14/17 at 14:00 Levetiracetam (Keppra 500 Mg/ 100ml (Pmx)) 100 ml @ 400 mls/hr Q12 IVPB Last administered on 02/15/17 09:51; Admin Dose 400 MLS/HR; Start 02/14/17 at 21:00 Amlodipine Besylate (Norvasc) 2.5 mg QAM PO ; Start 02/15/17 at 10:00 Famotidine (Pepcid) 20 mg BID PO ; Start 02/15/17 at 21:00 Fernando Harper DO Feb 15, 2017 16:19
--- NOTE | 2017-02-15 18:27 | CONS ---
Date/Time of Note Date/Time of Note DATE: 02/15/17 TIME: 18:25 Assessment/Plan Assessment/Plan Chief Complaint/Hosp Course HYPONATREMIA BETTER SIADH HTN S/P ARREST PLAN LYTES STABLE Problems: Consultation Date/Type/Reason Admit Date/Time Feb 09, 2017 at 23:31 Type of Consultation: RENAL 24 HR Interval Summary Constitutional: no complaints (EATING ,NO AMS) Exam/Review of Systems Vital Signs Vitals Vital Signs Date Time Temp Pulse Resp B/P Pulse Ox O2 Delivery O2 Flow Rate FiO2 02/15/17 16:04 65 02/15/17 16:00 98.4 20 104/55 92 02/13/17 11:27 Room Air 02/13/17 10:28 2.0 Intake and Output 02/14/17 02/14/17 02/15/17 15:00 23:00 07:00 Intake Total 700 ml 800 ml Output Total 800 ml Balance -100 ml 800 ml Exam Neck: supple Respiratory: clear to auscultation Cardiovascular: regular rate and rhythm Gastrointestinal: soft Musculoskeletal: nl extremities to inspection Extremities: normal pulses Results Result Diagram: 02/15/17 0627 02/15/17 0627 Results 24 hrs Laboratory Tests Test 02/15/17 06:27 02/15/17 11:49 02/15/17 17:06 White Blood Count 6.6 Red Blood Count 3.75 L Hemoglobin 12.8 L Hematocrit 36.4 L Mean Corpuscular Volume 97.1 Mean Corpuscular Hemoglobin 34.1 H Mean Corpuscular Hemoglobin Concent 35.2 Red Cell Distribution Width 12.7 Platelet Count 209 Mean Platelet Volume 10.1 Neutrophils % 60.7 Lymphocytes % 24.0 Monocytes % 10.3 Eosinophils % 3.6 Basophils % 0.8 Nucleated Red Blood Cells % 0.0 Neutrophils # (Manual) 4.0 Lymphocytes # 1.6 Monocytes # 0.7 Eosinophils # 0.2 Basophils # 0.1 Nucleated Red Blood Cells # 0.0 Sodium Level 137 Potassium Level 3.5 Chloride Level 105 Carbon Dioxide Level 22 Anion Gap 14 Blood Urea Nitrogen 19 Creatinine 0.94 Glucose Level 53 #L Calcium Level 8.7 Phosphorus Level 4.0 Magnesium Level 1.8 Albumin 3.0 L Bedside Glucose 136 136 Medications Medications Current Medications Acetaminophen (Tylenol Tab) 650 mg Q6H PRN PO PAIN LEVEL 1-3 OR FEVER; Start at 01:30 Docusate Sodium (Colace) 100 mg Q12H PRN PO CONSTIPATION; Start 02/10/17 at 01: 30 Bisacodyl 5 mg 5 mg DAILY PRN PO CONSTIPATION; Start 02/10/17 at 01:30 Sodium Chloride (NS) 1,000 ml @ 50 mls/hr Q20H IV Last administered on 12:10; Admin Dose 50 MLS/HR; Start 02/10/17 at 11:00 Hydralazine HCl (Apresoline) 5 mg Q6H PRN IV SBP >160 Last administered on 20:01; Admin Dose 5 MG; Start 02/10/17 at 19:00 Lorazepam (Ativan) 0.5 mg HS IV Last administered on 02/14/17 20:17; Admin Dose 0.5 MG; Start 02/12/17 at 21:00 Lorazepam (Ativan) 1 mg Q10MIN PRN IV seizure activity; Start 02/13/17 at 12:00 Acetaminophen 650 mg 650 mg Q6H PRN [place] FEVER; Start 02/14/17 at 14:00 Levetiracetam (Keppra 500 Mg/ 100ml (Pmx)) 100 ml @ 400 mls/hr Q12 IVPB Last administered on 02/15/17 09:51; Admin Dose 400 MLS/HR; Start 02/14/17 at 21:00 Amlodipine Besylate (Norvasc) 2.5 mg QAM PO ; Start 02/15/17 at 10:00 Famotidine (Pepcid) 20 mg BID PO ; Start 02/15/17 at 21:00 RACHEL BARRERA MD Feb 15, 2017 18:27
[2017-02-15] MEDS: LORAZEPAM 2 MG INJ IV SCH (20:47)
[2017-02-15] MEDS: FAMOTIDINE 20 MG TAB PO SCH (20:48)
[2017-02-16] VITALS (8 sets, daily range): BP systolic 119–142; BP diastolic 57–66; PULSE 56–71; RESP 18–19
[2017-02-16] MEDS: SOD CHLORIDE 0.9% 1,000 ML IV SCH (06:47)
[2017-02-16 08:14] LABS: CALCIUM 8.3 mg/dl (8.4-10.2); CREATININE 0.81 mg/dl (0.61-1.24); POTASSIUM 3.7 mmol/L (3.5-5.1)
[2017-02-16] MEDS: LEVETIRACETAM 500 MG (PMX) 100 ML IVPB SCH (08:54)
[2017-02-16] MEDS: FAMOTIDINE 20 MG TAB PO SCH (08:55)
[2017-02-16] MEDS: AMLODIPINE 2.5 MG TAB PO SCH (08:55)
[2017-02-16] MEDS ORDERED: AMLO2.5T78 PO (12:07)
[2017-02-16] MEDS ORDERED: LEVE500S8 PO (12:07)
--- NOTE | 2017-02-16 12:20 | DS ---
Date/Time of Note Date/Time of Note DATE: 02/16/17 TIME: 12:09 Discharge Summary Admission/Discharge Info Admit Date/Time Feb 09, 2017 at 23:31 Discharge Date/Time Discharge Diagnosis 1. Seizure disorder due to hyponatremia, no recurrence, on keppra, follow up with neurology 2. Hyponatremia secondary to Hctz and excessive water intake, resolved 3. Hypokalemia- resolved 4. Anxiety disorder, on Klonipin 0.5mg qHS 5. Hypertension, on norvasc, follow up with PCP Patient Condition: Stable Hx of Present Illness Patient's daughter is here with the patient and she states that he has not been eating or drinking well today. He said he did not feel good today and he told his daughter that he was going to today. She says tonight that he suddenly grabbed his chest and turned blue and stopped breathing. She said that she put him on the floor and then she gave him [id number] with bystander CPR. She says she did this for approximately a minute and then he woke up. Patient says he does not remember any of these incidences and has no complaints at this time. Patient is a poor historian however he is verbal and alert. Daughter does state that patient previously had an issue with hyponatremia and he was supposed to be stopped on his combination medication of valsartan/ hydrochlorothiazide however he has been continuing to take it as there was some medication error. Hospital Course For seizure, he has abnormal EEG, likely triggered by hyponatremia. Patient is on keppra, no recurrence. Patient will follow up with Neurologist outpatient. For hyponatremia, it is considered HCTZ and excessive water intake related. HCTZ is stopped. Blood pressure is controlled with norvasc. Patient will follow up with PCP for antihypertensive adjustment. Home Meds Active Scripts Levetiracetam* (Keppra*) 500 Mg/5 Ml Solution, 500 MG PO BID for 30 Days, BOTTLE Prov:REFUGIO DE SOUZA MD 02/16/17 Amlodipine Besylate* (Amlodipine Besylate*) 2.5 Mg Tablet, 2.5 MG PO QAM for 30 Days, TAB Prov:REFUGIO DE SOUZA MD 02/16/17 Clonazepam* (Clonazepam*) 0.5 Mg Tablet, 0.5 MG PO QHS, #30 TAB Prov:GRACE WAKEFIELD V[employer]PERATOR 02/01/17 Aspirin (Aspirin) 81 Mg Chew, 81 MG PO DAILY, #30 TAB Prov:GRACE WAKEFIELD V. [employer] SP[employer] OPERATOR 02/01/17 Reported Medications Citalopram Hydrobromide* (Citalopram Hydrobromide*) 10 Mg Tablet, 10 MG PO DAILY , #30 TAB 02/09/17 Discontinued Scripts Valsartan* (Diovan*) 160 Mg Tablet, 320 MG PO DAILY, #30 TAB Prov:GRACE WAKEFIELD V. [employer] SP[employer] OPERATOR 02/01/17 [place] Carbonate* ([place]*) 300 Mg Cap, 300 MG PO QHS, #30 CAP Prov:GRACE WAKEFIELD V. [employer] SP[employer] OPERATOR 02/01/17 Lamotrigine* (Lamotrigine*) 25 Mg Tablet, 50 MG PO QHS, #30 TAB Prov:GRACE WAKEFIELD V. [employer] SP[employer] OPERATOR 02/01/17 Citalopram Hydrobromide* (Celexa*) 20 Mg Tablet, 20 MG PO DAILY, #30 TAB Prov:GRACE WAKEFIELD V. [employer] SP[employer] OPERATOR 02/01/17 Follow-up Plan PCP and neurology in 1-2 weeks Primary Care Provider Bret Varghese Pending Labs Laboratory Tests Test 02/15/17 17:06 02/16/17 06:42 Bedside Glucose 136mg/dL (70-220) Sodium Level 136mmol/L (135-144) Potassium Level 3.7mmol/L (3.5-5.1) Chloride Level 106mmol/L (97-110) Carbon Dioxide Level 24mmol/L (21-31) Anion Gap 10 (8-16) Blood Urea Nitrogen 15mg/dl (7-20) Creatinine 0.81mg/dl (0.61-1.24) Glucose Level 93mg/dl (70-220) Calcium Level 8.3mg/dl (8.4-10.2) REFUGIO DE SOUZA MD Feb 16, 2017 12:19
--- NOTE | 2017-02-16 12:21 | CONS ---
Date/Time of Note Date/Time of Note DATE: 02/16/17 TIME: 12:14 Assessment/Plan Assessment/Plan Chief Complaint/Hosp Course 81 yo male with history of hypertension admitted with hyponatremia secondary to anti-hypertensives, respiratory vs. cardiac arrest with ROSC with no further intervention with seizure activity and hyponatremia. EEG showed bitemporal sharps consistent with epileptiform activity. CTH no acute process on 02/10 Carotid Duplex mild stenosis Left ICA Now off anti-hypertensives, Sodium normalized would recommend Keppra 500 mg q12h to continue for atleast one year due to abnormal EEG, may follow up with neurology to determine if safe to taper off in the future recommend close follow up in 2 weeks seizure precautions, return to the hospital for any further seizure activity continue current medical management as planned, planned for dc Problems: Consultation Date/Type/Reason Admit Date/Time Feb 09, 2017 at 23:31 Date of Consultation: Feb 16, 2017 Type of Consultation: Neurology Reason for Consultation seizure, SIADH with hyponatremia Referring Provider: REFUGIO DE SOUZA MD Hx of Present Illness 81 yo male with history of hyponatremia presumably drug induced from anti- hypertensive combination of valsartan/HCTZ, admitted after cardiac arrest with ROSC received CPR, reportedly had seizure witnessed by daughter- generalized with resolution of sx. He was initiated on Keppra 500 mg q12h. EEG showed bitemporal sharps with epileptogenic activity. Na now normalized to 136, no further seizures planned for dc with outpatient follow up. no complaints Constitutional: no complaints (EATING ,NO AMS) Cardiovascular: no complaints Gastrointestinal: no complaints Psychological: nl mood/affect, no complaints Past Medical History Medical History: hypertension Past Surgical History Past Surgical Hx: no surgical history Social History Alcohol Use: none Smoking Status: Former smoker Drug Use: none Exam/Review of Systems Vital Signs Vitals Vital Signs Date Time Temp Pulse Resp B/P Pulse Ox O2 Delivery O2 Flow Rate FiO2 02/16/17 12:03 97.5 62 19 122/57 98 02/13/17 11:27 Room Air 02/13/17 10:28 2.0 Intake and Output 02/15/17 02/15/17 02/16/17 15:00 23:00 07:00 Intake Total 320 ml 1000 ml Balance 320 ml 1000 ml Exam Constitutional: alert, frail, oriented Psych: nl mood/affect, no complaints Neurological: 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 II-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 intact, DTR's symmetric, nl mental status, nl speech, nl strength Results Result Diagram: 02/15/17 0627 02/16/17 0642 Results 24 hrs Laboratory Tests Test 02/15/17 17:06 02/16/17 06:42 Bedside Glucose 136 Sodium Level 136 Potassium Level 3.7 Chloride Level 106 Carbon Dioxide Level 24 Anion Gap 10 Blood Urea Nitrogen 15 Creatinine 0.81 Glucose Level 93 # Calcium Level 8.3 L Medications Medications Current Medications Acetaminophen (Tylenol Tab) 650 mg Q6H PRN PO PAIN LEVEL 1-3 OR FEVER; Start at 01:30 Docusate Sodium (Colace) 100 mg Q12H PRN PO CONSTIPATION; Start 02/10/17 at 01: 30 Bisacodyl 5 mg 5 mg DAILY PRN PO CONSTIPATION; Start 02/10/17 at 01:30 Sodium Chloride (NS) 1,000 ml @ 50 mls/hr Q20H IV Last administered on 06:47; Admin Dose 50 MLS/HR; Start 02/10/17 at 11:00 Hydralazine HCl (Apresoline) 5 mg Q6H PRN IV SBP >160 Last administered on 20:01; Admin Dose 5 MG; Start 02/10/17 at 19:00 Lorazepam (Ativan) 0.5 mg HS IV Last administered on 02/14/17 20:17; Admin Dose 0.5 MG; Start 02/12/17 at 21:00 Lorazepam (Ativan) 1 mg Q10MIN PRN IV seizure activity; Start 02/13/17 at 12:00 Acetaminophen 650 mg 650 mg Q6H PRN UT FEVER; Start 02/14/17 at 14:00 Levetiracetam (Keppra 500 Mg/ 100ml (Pmx)) 100 ml @ 400 mls/hr Q12 IVPB Last administered on 02/16/17 08:54; Admin Dose 400 MLS/HR; Start 02/14/17 at 21:00 Amlodipine Besylate (Norvasc) 2.5 mg QAM PO Last administered on 02/16/17 08: 55; Admin Dose 2.5 MG; Start 02/15/17 at 10:00 Famotidine (Pepcid) 20 mg BID PO Last administered on 02/16/17t 08:55; Admin Dose 20 MG; Start 02/15/17 at 21:00 RICH LOVE MD Feb 16, 2017 12:21
--- NOTE | 2017-02-16 17:45 | CONS ---
Date/Time of Note Date/Time of Note DATE: 02/16/17 TIME: 17:44 Assessment/Plan Assessment/Plan Chief Complaint/Hosp Course HYPONATREMIA BETTER SIADH HTN S/P ARREST PLAN no change Problems: Consultation Date/Type/Reason Admit Date/Time Feb 09, 2017 at 23:31 Type of Consultation: Neurology Referring Provider: REFUGIO DE SOUZA MD 24 HR Interval Summary Constitutional: no complaints Exam/Review of Systems Vital Signs Vitals Vital Signs Date Time Temp Pulse Resp B/P Pulse Ox O2 Delivery O2 Flow Rate FiO2 02/16/17 12:26 56 02/16/17 12:03 97.5 19 122/57 98 02/13/17 11:27 Room Air 02/13/17 10:28 2.0 Intake and Output 02/15/17 02/15/17 02/16/17 15:00 23:00 07:00 Intake Total 320 ml 1000 ml Balance 320 ml 1000 ml Exam Respiratory: clear to auscultation Cardiovascular: regular rate and rhythm Gastrointestinal: soft Results Result Diagram: 02/15/17 0627 02/16/17 0642 Results 24 hrs Laboratory Tests Test 02/16/17 06:42 Sodium Level 136 Potassium Level 3.7 Chloride Level 106 Carbon Dioxide Level 24 Anion Gap 10 Blood Urea Nitrogen 15 Creatinine 0.81 Glucose Level 93 # Calcium Level 8.3 L RACHEL BARRERA MD Feb 16, 2017 17:45
== END 2017-02-16 15:35 | disposition home or self-care (01) | DRG 644 ==
LOC: E/R 20:48 → MS4 23:31
PROVIDERS: ADMIT Family Medicine; ATTEND Family Medicine
PROC: 4A00X4Z Measurement of Central Nervous Electrical Activity, External Approach (ICD-10-PCS; principal; 2017-02-13)
DX: E22.2 Syndrome of inappropriate secretion of antidiuretic hormone (principal); F15.93 Other stimulant use, unspecified with withdrawal; Z86.74 Personal history of sudden cardiac arrest; G40.909 Epilepsy, unspecified, not intractable, without status epilepticus; F13.239 Sedative, hypnotic or anxiolytic dependence with withdrawal, unspecified; I65.22 Occlusion and stenosis of left carotid artery; I12.9 Hypertensive chronic kidney disease with stage 1 through stage 4 chronic kidney disease, or unspecified chronic kidney disease; N18.9 Chronic kidney disease, unspecified; F41.9 Anxiety disorder, unspecified; E87.6 Hypokalemia; R13.10 Dysphagia, unspecified; R41.0 Disorientation, unspecified; F32.9 Major depressive disorder, single episode, unspecified; Z79.82 Long term (current) use of aspirin; T50.2X5A Adverse effect of carbonic-anhydrase inhibitors, benzothiadiazides and other diuretics, initial encounter
CPT/HCPCS: 36415; 70450; 71010; 80048; 80053; 80069; 81001; 81003; 82550; 82553; 82962; 83735; 83880; 83930; 83935; 84295; 84300; 84436; 84439; 84443; 84480; 84481; 84484; 84560; 85025; 85610; 85730; 87086; 92526; 92610; 93005; 93306; 93880; 95819; 97110; 97116; 97161; J0360; J1953; J2060; J3475; J3480; J7030

== ENCOUNTER → 2017-07-22 | Outpatient (CLI) | END | disposition home or self-care (01) ==